=== PATIENT | male | born 1985 | race Caucasian/White ===

== ENCOUNTER 2020-12-20 13:50 | Inpatient (IN) | payer SELFPAY ==
[2020-12-20 13:52] VITALS: BP 145/90; PULSE 106; RESP 16; TEMP 37; O2SAT 100; BMI 28.7
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
[2020-12-20 14:45] LABS: Basophils # 0.1 10^3/uL (0.0-0.1); Basophils % 0.5 %; Eosinophils % 0.1 %; Hematocrit 50.1 % (42.0-52.0); Hemoglobin 17.2 g/dL (11.7-16.6); Lymphocytes # 1.9 10^3/uL (0.8-4.8); Lymphocytes % 6.1 %; Mean Corpuscular HGB Conc 34.3 g/dL (30.0-36.0); Mean Corpuscular Hemoglobin 29.1 pg (28.0-34.0); Mean Corpuscular Volume 84.6 fL (80-94); Mean Platelet Volume 9.5 fL (7.4-10.4); Monocytes # 1.9 10^3/uL (0.2-0.9); Monocytes % 6.3 %; Neutrophils # 26.16 10^3/uL (1.8-7.7); Neutrophils % 86.2 %; Nucleated Red Blood Cells % 0 %; Platelet Count 276 10^3/cmm (130-400); Red Blood Count 5.92 10^6/uL (4.1-5.3); Red Cell Distribution Width 12.4 % (12.1-15.1)
[2020-12-20 14:50] LABS: White Blood Count 30.3 10^3/uL (4.0-10.0)
--- NOTE | 2020-12-20 15:21 | XRR_ITS ---
PROCEDURE INFORMATION: Exam: XR Chest Exam date and time: 12/20/2020 3:22 PM Age: 35 years old Clinical indication: Cough and dyspnea; Additional info: Dyspnea/cough TECHNIQUE: Imaging protocol: XR of the chest Views: 1 view. COMPARISON: No relevant prior studies available. FINDINGS: Lungs: No consolidation. Pleural spaces: Unremarkable. No pleural effusion. No pneumothorax. Heart/Mediastinum: No cardiomegaly. Vasculature: The thoracic aorta is mildly atherosclerotic. Bones/joints: Degenerative spine changes are noted. XR/XR chest 1V portable [id number] IMPRESSION: No acute cardiopulmonary disease demonstrated.
[2020-12-20 15:24] LABS: Alanine Aminotransferase 22 U/L (0-41); Albumin Level 4.5 g/dL (3.5-5.2); Alkaline Phosphatase 117 IU/L (40-130); Anion Gap 14.4 (5-19); Aspartate Amino Transferase 17 U/L (0-40); Blood Urea Nitrogen 9 mg/dL (6-20); Calcium 8.9 mg/dL (8.5-10.5); Carbon Dioxide 25 mmol/L (22-29); Chloride 99 mmol/L (98-107); Creatine Phosphokinase 107 U/L (39-308); Globulin 3.5 g/dL (1.3-4.6); Glomerular Filtration Rate 96.6 mL/min (90-130); Glucose 117 mg/dL (65-115); Osmolality Calculated 280 mOsm/kg (285-295); Potassium 3.4 mmol/L (3.5-5.1); Sodium 135 mmol/L (136-145); Total Bilirubin 0.9 mg/dL (0.15-1.2)
[2020-12-20 15:27] LABS: Acetaminophen < 5.0 ug/mL (10-30); Alcohol Level < 10 mg/dL (0-10); Salicylate < 0.3 mg/dL (3-10)
[2020-12-20 15:29] LABS: Add Urine Microscopic? NO
--- NOTE | 2020-12-20 15:38 | CTR_ITS ---
PROCEDURE INFORMATION: Exam: CT Abdomen And Pelvis With Contrast Exam date and time: 12/20/2020 4:07 PM Age: 35 years old Clinical indication: Nausea; Additional info: Abd pain TECHNIQUE: Imaging protocol: Computed tomography of the abdomen and pelvis with contrast. Radiation optimization: All CT scans at this facility use at least one of these dose optimization techniques: automated exposure control; mA and/or kV adjustment per patient size (includes targeted exams where dose is matched to clinical indication); or iterative reconstruction. Contrast material: OMNI 300; Contrast volume: 95 ml; Contrast route: INTRAVENOUS (IV); COMPARISON: No relevant prior studies available. RADIATION DOSE METRICS: Total DLP (mGy-cm): 1765.75 FINDINGS: Lungs: Mild atelectasis versus fibrosis noted at the lung bases. Liver: The liver is unremarkable in appearance. Gallbladder and bile ducts: No calcified gallstones in the gallbladder. No gallbladder wall thickening. No pericholecystic fluid. No biliary dilatation. Pancreas: The pancreas is normal in appearance. No pancreatic duct dilatation. Spleen: The spleen is normal in size and appearance. Adrenal glands: The adrenal glands appear within normal limits. Kidneys and ureters: Nonobstructing 7 mm calculus lower pole left kidney. No renal cyst or mass on either side. No hydronephrosis. Ureters are unremarkable. Stomach and bowel: No acute gastric abnormality demonstrated. The small bowel is unremarkable as demonstrated. No acute abnormality/inflammatory change of the colon. Appendix: The appendix is normal in appearance. No evidence of appendicitis. Intraperitoneal space: No free air. No significant fluid collection. Vasculature: The aorta is unremarkable as demonstrated. Lymph nodes: No pathologically enlarged lymph nodes are demonstrated. Urinary bladder: The urinary bladder is unremarkable in appearance. Reproductive: Unremarkable as visualized. Bones/joints: No fracture or other acute osseous abnormality. Soft tissues: The soft tissues appear unremarkable. CT/CT abdomen pelvis w con* [id number] IMPRESSION: No acute abnormality demonstrated in the abdomen and pelvis. Radiation Dose CTDIVOL = (mGy): DLP = 1765.75 (mGy-cm)
--- NOTE | 2020-12-20 15:38 | CTR_ITS ---
PROCEDURE INFORMATION: Exam: CT Head Without Contrast Exam date and time: 12/20/2020 4:07 PM Age: 35 years old Clinical indication: Other: Hallucinations; Additional info: Leukocytosis TECHNIQUE: Imaging protocol: Computed tomography of the head without contrast. Radiation optimization: All CT scans at this facility use at least one of these dose optimization techniques: automated exposure control; mA and/or kV adjustment per patient size (includes targeted exams where dose is matched to clinical indication); or iterative reconstruction. COMPARISON: No relevant prior studies available. RADIATION DOSE METRICS: Total DLP (mGy-cm): 959.28 FINDINGS: Brain: Unremarkable. No hemorrhage. No significant white matter disease. No edema. Cerebral ventricles: No ventriculomegaly. Bones/joints: Unremarkable. No acute fracture. Paranasal sinuses: Visualized sinuses are unremarkable. No fluid levels. Mastoid air cells: Unremarkable as visualized. No mastoid effusion. Soft tissues: Unremarkable. CT/CT head wo con* [id number] IMPRESSION: No acute intracranial abnormality demonstrated. Radiation Dose CTDIVOL = (mGy): DLP = 959.28 (mGy-cm)
[2020-12-20 15:46] LABS: Bilirubin Urine Neg (Negative); Blood Urine Neg (Negative); Glucose Urine UA Norm (Normal); Ketones Urine Negative (Negative); Leukocyte Esterase Urine Negative (Negative); Nitrate Urine Negative (Negative); Protein Urine Neg (Negative); Urine Appearance Clear (CLEAR); Urine Color Yellow (Yellow); Urobilinogen Urine Norm (Negative); pH Urine 5 (5-7)
[2020-12-20 15:55] LABS: Amphetamines Screen Urine Negative (Negative); Barbiturates Screen Urine Negative (Negative); Benzodiazepines Screen Urine Negative (Negative); Cocaine Screen Urine Negative (Negative); Opiate Screen Urine Negative (Negative); PCP Screen Urine Negative (Negative); THC Screen Urine Positive (Negative)
[2020-12-20] MEDS: iohexol 300 mg/mL 100 mL Btl IV (16:39)
[2020-12-20 17:40] VITALS: BP 124/83; PULSE 74; O2SAT 95
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
[2020-12-20 18:01] VITALS: BP 127/85; PULSE 86; RESP 18; TEMP 36.7; O2SAT 95
[2020-12-20] MEDS: potassium chloride ER 20 mEq Tablet PO (18:10)
[2020-12-20 19:38] VITALS: BP 129/85; PULSE 77; RESP 17; TEMP 36.4; O2SAT 97
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
--- NOTE | 2020-12-20 22:42 | PC.NURSE ---
LEUKOCYTOSIS/DR MCKNIGHT NURSE CONTACTED HOSPITALIST, DR UGARTE, FOR INFORMATION ON WHAT TO WATCH FOR WITH THIS PATIENTS DIAGNOSED LEUKOCYTOSIS, WHAT MEDICAL EVALUATIONS TO COMPLETE, AND OBTAIN ANY SPECIAL ORDERS NEEDED TO ENSURE PATIENT SAFETY AND PROVIDE COMPREHENSIVE PATIENT CARE. PHYSICIAN STATED, NURSING STAFF NEEDS TO OBSERVE PATIENT FOR ANY S/S INFECTION, OBTAIN V/S Q4H AND REPORT IF BECOMES UNSTABLE. IF FEVER OF 100.4 DEVELOPS, DO THE BLOOD CULTURE LABS IMMEDIATELY, AND CONTACT HOSPITALIST.
[2020-12-20 22:59] LABS: Procalcitonin 0.05 ng/mL (0-0.5)
[2020-12-21 00:19] VITALS: BP 139/93; PULSE 71; RESP 18; TEMP 36.5; O2SAT 95
[2020-12-21 01:56] LABS: C Reactive Protein 7.9 mg/L (0.0-4.9)
[2020-12-21 04:21] VITALS: BP 114/75; PULSE 81; RESP 16; TEMP 36.2; O2SAT 96
[2020-12-21 04:53] LABS: Basophils # 0.1 10^3/uL (0.0-0.1); Basophils % 0.6 %; Eosinophils # 0.1 10^3/uL (0.0-0.8); Eosinophils % 0.4 %; Hemoglobin 16.3 g/dL (11.7-16.6); Lymphocytes # 3.3 10^3/uL (0.8-4.8); Lymphocytes % 28.5 %; Mean Corpuscular Hemoglobin 28.8 pg (28.0-34.0); Mean Corpuscular Volume 84.8 fL (80-94); Mean Platelet Volume 9.3 fL (7.4-10.4); Monocytes # 1.1 10^3/uL (0.2-0.9); Monocytes % 9.6 %; Neutrophils # 7.06 10^3/uL (1.8-7.7); Neutrophils % 60.7 %; Nucleated Red Blood Cells % 0 %; Platelet Count 290 10^3/cmm (130-400); Red Blood Count 5.66 10^6/uL (4.1-5.3); Red Cell Distribution Width 12.6 % (12.1-15.1); White Blood Count 11.6 10^3/uL (4.0-10.0)
[2020-12-21 05:16] LABS: Albumin Level 4.4 g/dL (3.5-5.2); Anion Gap 13.2 (5-19); Blood Urea Nitrogen 7 mg/dL (6-20); Calcium 9.2 mg/dL (8.5-10.5); Carbon Dioxide 27 mmol/L (22-29); Chloride 99 mmol/L (98-107); Glomerular Filtration Rate 110.7 mL/min (90-130); Glucose 95 mg/dL (65-115); Potassium 4.2 mmol/L (3.5-5.1); Sodium 135 mmol/L (136-145)
[2020-12-21 06:00] VITALS: BP 136/91; PULSE 69; RESP 18; TEMP 36.8; O2SAT 95
[2020-12-21 07:54] LABS: Magnesium 2.3 mg/dL (1.7-2.3)
[2020-12-21] MEDS: thiamine 100 mg Tablet PO (08:28)
--- NOTE | 2020-12-21 13:05 | P.HP_ITS ---
Providers/Chief Complaint Admitting Physician: Stephania Weems DO Chief Complaint: PSYCH EVAL HPI NPU History of Present Illness Ambrosio Mirza is a 35 year old male unclear, unknown past psychiatric history presented to the emergency department by police on 96-hour hold secondary to growing concerns about impulse control, irritability, anger, paranoid delusions and concerns about safety to self and others. At the time of his emergency department evaluation it was noted that he had stated that he was having hallucinations and was having paranoid delusions about his sisters . Patient was also noted to have a white count of 30,000 the time of initial evaluation hospitalist was consulted but at the time of reevaluation patient's white count had dropped down to 11,000 and patient denied any constitutional symptoms of fever or chills, no shortness of breath, no urinary complaints. CT of head, abdomen and pelvis were all unremarkable patient did not demonstrate any physical agitation throughout his ER stay. Patient calmly sitting in the day room talking to other patients, denies any moo d symptoms, denies any depressed symptoms, denies any irritability or anger, denies any suicidal or homicidal ideation. Patient denies any past episodes of sustained low mood state, decreased energy or interest in his usual activities or any sleep or appetite disruption secondary to mood symptoms. He denies any history of suicide attempts or self-harm behavior. Patient denies any past or recent episodes of enrike or hypomania. Patient currently denying any psychotic symptoms although he does report some paranoia which he relates to more now as suspicions about his sister's . Patient largely denied any psychiatric review of systems questions. COLLATERAL: Patient's mother, Anum, phone: [phone], reports that the patient has had intermittent episodes of anger, irritability, impulsive outbursts and states that he has had past instances of such behavior while using synthetic drugs and states that one of her daughters had also told her that he had recently been using wax around the time. Of these episodes of extreme rage in which the patient's family has felt threatened that he may possibly hurt himself or others. She denies that the patient has had any remarkable past psychiatric history but states that his sister has previously been hospitalized and treated for psychiatric reasons but denies any family history of suicide attempt or self-harm behavior. Meds NPU Home Medications Medication Instructions Recorded Confirmed Last Taken Type No Known Home Medications 12/20/20 12/20/20 Unknown History Allergies Allergy/AdvReac Type Severity Reaction Status Date / Time No Known Allergies Allergy Verified 12/20/20 15:16 [facility] NPU Other Psychiatric History: Other Psychiatric History: Denies any past psychiatric treatment Denies any history of psychiatric hospitalizations Denies any history of suicide attempts or self-harm behavior Mental Status Exam MSE Comments: Appears stated age, unkempt hair and page, wearing hospital attire, pleasant, interactive, somewhat unusual in his interactions often times getting up out of his chair to physically demonstrate elements of his story, good eye contact Psychomotor activity is neither increased nor decreased, no agitation Speech is normal rate and volume, spontaneous, clear articulation, not pressured I feel okay, full range of affect, not labile Alert and oriented to person, place, time, situation Memory and concentration appear to be fair to intact per interview Intellectual functioning appears to be average based on vocabulary, interview Thought process, somewhat circumstantial but easily redirected and mostly linear and goal-directed in his responses, no flight of ideas, no looseness of associations Thought content, paranoid delusions, overvalued ideas with paranoid themes, does not appear to be actively attending to any internal stimuli and does not appear to be internally preoccupied, no suicidal or homicidal ideation Insight and judgment appear to be fair Vitals/I&O/Wt Last Vital Signs Temp 98.2 F 12/21/20 06:00 Pulse 69 12/21/20 06:00 Resp 18 12/21/20 06:00 BP 136/91 12/21/20 06:00 Pulse Ox 95 12/21/20 06:00 Weight last 48 hrs Weight 90.718 kg Data NPU : 12/21/20 04:41 12/21/20 04:41 Micro: Microbiology 12/20/20 16:10 Blood Culture - Preliminary Blood SPECIMEN COLLECTED 12/20/20 16:15 Blood Culture - Preliminary Blood SPECIMEN COLLECTED Microbiology 12/20/20 16:10 Blood Blood Culture - Preliminary SPECIMEN COLLECTED 12/20/20 16:15 Blood Blood Culture - Preliminary SPECIMEN COLLECTED A&P Assessment and plan (1) Cannabis abuse: Status: Acute (2) Psychotic disorder: Status: Acute Qualifiers: Psychosis type: unspecified psychosis type Qualified Code(s): F29 - Unspecified psychosis not due to a substance or known physiological condition Additional A&P Information 35-year-old male with unknown past psychiatric history but known history of substance abuse reportedly using wax recently with escalating paranoia, combat reese behavior with concerns about harm to self and others on 96-hour hold. Patient would benefit from observation, treatment with low-dose antipsychotic as well as coordinating for post discharge substance counseling/treatment. INVOLUNTARY ADMIT to inpatient psychiatry START olanzapine 2.5 mg twice daily targeting psychotic symptoms Encourage patient to participate in unit activities to include group sessions, unit milieu Coordinate with social work therapist for post discharge substance counseling/treatment Involuntary Hold Information 96 Hour Hold: 96 Hour Involuntary Admission: Yes 96 Hour Hold Ending Date: 12/26/20 96 Hour Hold Ending Time: 14:30 Attestations NPU Medical Necessity Statement*: Require psychiatric hospitalization for medication stabilization, observation for any ongoing psychotic symptoms as well as coordinating for safe discharge. Anticipate hospital stay to exceed 2 midnights Time Spent in Patient Care: Greater than 35 minutes (>than 50% of time spent in counselling and/or direct pt care on unit) . Coding Level of Care Code Acute Cannon Fire Direction Specialist for Luciano Mccoy Diagnoses Cannabis abuse F12.10 Psychotic disorder F29 Psychosis type: unspecified psychosis type
[2020-12-21] MEDS: OLANZapine 5 mg TABLET 2.5 MG PO ×2 (13:20→20:34)
--- NOTE | 2020-12-21 13:52 | PM.PN ---
Subjective Subjective: Interval history: Patient reports feeling much better today. He slept well. Denies having any paranoid thoughts, hallucinations, anxiety or agitation. He also denies any fever or chills. No nausea or vomiting. No diarrhea. No chest pain, shortness of breath, cough, palpitations. Medications: Reviewed: Yes Medication Review Details: Generic Name Dose Route Start Last Admin Trade Name Nicolette PRN Reason Stop Dose Admin Olanzapine 2.5 mg 12/21/20 13:00 12/21/20 13:20 Olanzapine 5 Mg Tablet PO 2.5 mg BID MICHELLE Administration Thiamine Mononitra te 100 mg 12/21/20 09:00 12/21/20 08:28 Thiamine 100 Mg Tablet PO 100 mg DAILY MICHELLE Administration Vitals/I&O/Wt Last Vital Signs Temp 98.2 F 12/21/20 06:00 Pulse 69 12/21/20 06:00 Resp 18 12/21/20 06:00 BP 136/91 12/21/20 06:00 Pulse Ox 95 12/21/20 06:00 Weight last 48 hrs Weight 90.718 kg Physical Exam Narrative: EXAM NARRATIVE: The patient is awake and alert, oriented. Restless. Mood and affect appear to be appropriate. Follows all instructions. No evident psychosis. Speech is calm and organized. No dysarthria or aphasia. No physical distress. Skin is warm and dry. Moist mucous membranes PERRL. Extraocular muscles are intact. No scleral irritation or discoloration. Neck is supple, no stiffness. No JVD. Lungs are clear to auscultation bilaterally. No respiratory distress Heart S1, S2, regular. No murmur. Abdomen is soft, nontender, bowel sounds are present Extremities no edema cyanosis or calf tenderness bilaterally Neuro examination is nonfocal. Data : 12/21/20 04:41 12/21/20 04:41 Micro: Microbiology 12/20/20 16:10 Blood Culture - Preliminary Blood SPECIMEN COLLECTED 12/20/20 16:15 Blood Culture - Preliminary Blood SPECIMEN COLLECTED A&P Additional A&P Information Paranoid psychosis. Improving. Management per Dr. Weems. Dehydration probably due to vomiting and decreased oral intake of water due to intoxication with marijuana. Resolved. Hypokalemia. Replaced. Leukocytosis. Probably multifactorial. Could be reactive from stress and from dehydration and hemoconcentration. Resolving. No evidence of infection. DVT prophylaxis. Teds. Ample ambulation within the room and psychiatric unit. The plan of care was discussed with the patient. He verbalized understanding and agreement. Thank you very much for allowing me to participate in the treatment of this patient. Attestations Medical Necessity Statement*: Decision regarding length of stay per psychiatric service. Coding Level of Care Code Acute Film Touch Up Inspector for Luciano Mccoy
[2020-12-21 14:00] VITALS: BP 121/77; PULSE 74; RESP 18; TEMP 36.3; O2SAT 96
[2020-12-21 19:28] VITALS: BP 102/65; PULSE 67; RESP 16; TEMP 36.3; O2SAT 96
--- NOTE | 2020-12-21 21:52 | PC.NURSE ---
PM ASSESSMENT V/S ARE WNL, DENIES PAIN, DENIES SI/HI, DENIES AH/VH AT THIS TIME, PT SEEMS MORE WITHDRAWN THIS EVENING AND IS TEARFUL WHILE TALKING WITH NURSE, AND SAYS HE WANTS TO GO HOME TO HIS GIRLFRIEND. PT REPORTS A DECREASE IN ANXIETY BUT HIS AFFECT RELAYS A DIFFERENT STORY. PT IS IN HIS ROOM, DOES NOT COME OUT UNLESS HE NEEDS A DRINK. PT LABS ARE BETTER TODAY, WBC LAST NIGHT WAS 30.3, WBC THIS EVENING IS 11.6. NURSE IS PUSHING FLUIDS, REQUESTING PATIENT TO FILL HIS WATER CUP NO LESS THAN 3 TIMES EACH EVENING. V/S WILL BE COMPLETED Q4H, AND TEMPERATURE MONITORED FOR TEMP TO RISE ABOVE 100.4, NURSING STAFF WILL NOTIFY PHYSICIAN IF THERE ARE ANY NOTED S/S OF INFECTION NOTED. PT DOES HAVE MULTIPLE DENTAL CARRIES IN VARIOUS STAGE OF DECAY, GUMS ARE BROWN IN SOME AREAS AND THERE IS NOTED ERYTHEMA LOCALIZED ON A COUPLE OF THE CAVITIES. PT STATES, I KNOW I NEED TO SEE A DENTIST BUT I HAVE NOT BEEN ABLE TO AFFORD ONE. NURSING STAFF PROVIDED PT WITH NUMBER TO [facility] PT STATES, I STARTED NEW MEDICATION TODAY, IT MAKES ME TIRED.PT IS REFERRING TO ZYPREXA 2.5MG PO SCHEDULED BID. HE RECEIVED FIRST DOSE OF MEDICATION THIS MORNING, SAYS HE FELT TIRED, IN A FOG ALL DAY, BUT THE VOICES SEEM TO HAVE QUIETED DOWN SOME. WILL CONTINUE TO OBSERVE THIS PATIENT.
[2020-12-22 00:16] VITALS: BP 114/78; PULSE 88; RESP 17; TEMP 36.2; O2SAT 96
[2020-12-22 04:00] VITALS: BP 114/78; PULSE 88; RESP 17; TEMP 36.2; O2SAT 96
[2020-12-22 05:09] LABS: Basophils # 0.1 10^3/uL (0.0-0.1); Basophils % 0.8 %; Eosinophils # 0.2 10^3/uL (0.0-0.8); Hematocrit 50.5 % (42.0-52.0); Hemoglobin 16.7 g/dL (11.7-16.6); Lymphocytes # 4.6 10^3/uL (0.8-4.8); Mean Corpuscular HGB Conc 33.1 g/dL (30.0-36.0); Mean Corpuscular Hemoglobin 28.8 pg (28.0-34.0); Mean Corpuscular Volume 87.1 fL (80-94); Mean Platelet Volume 9.3 fL (7.4-10.4); Monocytes # 1.1 10^3/uL (0.2-0.9); Monocytes % 10.8 %; Neutrophils # 3.98 10^3/uL (1.8-7.7); Neutrophils % 40.3 %; Nucleated Red Blood Cells % 0 %; Platelet Count 257 10^3/cmm (130-400); White Blood Count 9.9 10^3/uL (4.0-10.0)
--- NOTE | 2020-12-22 05:17 | PC.NURSE ---
ENCOURAGE FLUIDS/MEALS PT WILL NOT ASK FOR SNACKS, IF YOU PRESENT THEM TO HIM, HE WILL EAT. HYDRATION IS IMPROVING LAB VALUES, ENCOURAGE PT TO DRINK OFTEN. PT ATE A SANDWICH, FRUIT CUP, AND DESERT, FINISHED OFF 4-16OZ GLASSES OF WATER, 1 CHOCOLATE MILK, 2 APPLE JUICES, AND 2 ORANGE JUICES LAST NIGHT. VERY WITHDRAWN, WILL NOT ASK FOR ANYTHING.
[2020-12-22 05:30] LABS: C Reactive Protein 7.2 mg/L (0.0-4.9); Magnesium 2.2 mg/dL (1.7-2.3)
[2020-12-22 05:32] LABS: Albumin Level 4.2 g/dL (3.5-5.2); Anion Gap 14.6 (5-19); Blood Urea Nitrogen 15 mg/dL (6-20); Calcium 8.6 mg/dL (8.5-10.5); Carbon Dioxide 26 mmol/L (22-29); Chloride 102 mmol/L (98-107); Glomerular Filtration Rate 85.5 mL/min (90-130); Glucose 91 mg/dL (65-115); Phosphorus 3.8 mg/dL (2.5-4.5); Potassium 4.6 mmol/L (3.5-5.1); Sodium 138 mmol/L (136-145)
[2020-12-22 06:15] VITALS: BP 113/79; PULSE 65; RESP 17; TEMP 36.9; O2SAT 97
[2020-12-22] MEDS: OLANZapine 5 mg TABLET 2.5 MG PO ×2 (08:12→20:21)
[2020-12-22] MEDS: thiamine 100 mg Tablet PO (08:12)
[2020-12-22 10:00] VITALS: TEMP 36.4
--- NOTE | 2020-12-22 12:13 | PM.PN ---
Subjective Subjective: Interval history: Patient's condition is discussed with the nursing staff. I also evaluated the patient through the information security director. He is doing well. No acute distress. No agitation or erratic behavior. No medical complaints or concerns. Medications: Reviewed: Yes Medication Review Details: Generic Name Dose Route Start Last Admin Trade Name Nicolette PRN Reason Stop Dose Admin Olanzapine 2.5 mg 12/21/20 21:00 12/22/20 08:12 Olanzapine 5 Mg Tablet PO 2.5 mg 0900,2100 MICHELLE Administration Thiamine Mononitra te 100 mg 12/21/20 09:00 12/22/20 08:12 Thiamine 100 Mg Tablet PO 100 mg DAILY MICHELLE Administration Vitals/I&O/Wt Last Vital Signs Temp 97.5 F L 12/22/20 10:00 Pulse 65 12/22/20 06:15 Resp 17 12/22/20 06:15 BP 113/79 12/22/20 06:15 Pulse Ox 97 12/22/20 06:15 Weight last 48 hrs Weight 90.718 kg Physical Exam Narrative: EXAM NARRATIVE: Awake alert oriented. No acute distress. Skin is dry. No respiratory distress. No peripheral cyanosis. Normal gait. No weakness is observed. Data : 12/22/20 04:43 12/22/20 04:43 Micro: Microbiology 12/20/20 16:15 Blood Culture - Preliminary Blood NEGATIVE TO DATE 12/20/20 16:10 Blood Culture - Preliminary Blood NEGATIVE TO DATE A&P Additional A&P Information Paranoid psychosis. Improving. Management per Dr. Weems. Dehydration probably due to vomiting and decreased oral intake of water due to intoxication with marijuana. Resolved. Hypokalemia. Replaced/resolved. Leukocytosis. Probably multifactorial. Could be reactive from stress and from dehydration and hemoconcentration. Resolved. No evidence of infection. DVT prophylaxis. Ample ambulation within the room and psychiatric unit. Discussed with the nursing staff. Thank you very much for allowing me to participate in the treatment of this patient. Attestations Medical Necessity Statement*: Medically cleared. Undergoing psychiatric evaluation and management. Coding Level of Care Code Acute Credit Administration Officer for Luciano Mccoy
[2020-12-22 14:00] VITALS: BP 106/53; PULSE 90; RESP 16; TEMP 36.7; O2SAT 97
--- NOTE | 2020-12-22 16:48 | P.PN_ITS ---
Subjective NPU Subjective: Interval history: Ambrosio presents today reporting a fairly convoluted story about circumstances that led to his admission very much downplaying any wrongdoing on his part. He plays mostly blaming the sister and as his concern for discharging sooner rather than later increased he began to speculate about the intention of his sister's ex- exactly. He acknowled ged symptoms concerning for psychosis without current treatment. We discussed arranging for treatment after discharge and making sure the medication is affecting change on his symptoms prior to discharge. He is on a 96-hour hold. Mental Status Exam MSE Comments: This is a overweight white male with hospital scrubs on with limited grooming/appearing unkempt with limited eye contact. No abnormal movem ents except for mild psychomotor retardation. Cooperative with exam in mild distress. Speech was normal rate decreased volume. Mood described as better than when he was admitted, affect somewhat guarded. Thought process organized. Thought content: Patient denied suicidal or homicidal ideation, there was occasional paranoia reported and some paranoia noted he denied auditory visual hallucinations initially then was somewhat unsure of the answer. Attention and concentration were intact and memory was somewhat reliable but none were formally tested. He is alert and oriented x3. Insight and judgment are impaired and impulse control is impaired., Vitals/I&O/Wt Last Vital Signs Temp 98.0 F 12/22/20 14:00 Pulse 90 12/22/20 14:00 Resp 16 12/22/20 14:00 BP 106/53 12/22/20 14:00 Pulse Ox 97 12/22/20 14:00 Data NPU : 12/22/20 04:43 12/22/20 04:43 Micro: Microbiology 12/20/20 16:15 Blood Culture - Preliminary Blood NEGATIVE TO DATE 12/20/20 16:10 Blood Culture - Preliminary Blood NEGATIVE TO DATE Microbiology 12/20/20 16:15 Blood Blood Culture - Preliminary NEGATIVE TO DATE 12/20/20 16:10 Blood Blood Culture - Preliminary NEGATIVE TO DATE A&P Assessment and plan (1) Psychotic disorder: Status: Acute Qualifiers: Psychosis type: unspecified psychosis type Qualified Code(s): F29 - Unspecified psychosis not due to a substance or known physiological condition (2) Cannabis abuse: Status: Acute Additional A&P Information This is a 35-year-old white male with psychotic symptoms and some cannabis use who presents on a 96-hour hold with recent medication started, hoping for discharge soon. 1. Continue current medication. 2. Continue every 15 minute checks for safety. 3. Encourage individual, group and milieu therapies. 4. Encourage sober living treatment after discharge at the highest level of care to which he is willing to commit. Involuntary Hold Information 96 Hour Hold: 96 Hour Involuntary Admission: Yes 96 Hour Hold Ending Date: 12/26/20 96 Hour Hold Ending Time: 14:30 Attestations NPU Medical Necessity Statement*: Inpatient hospitalization is medically necessary and the clinically appropriate intervention at this time. We will monitor medications and make changes as indicated. Likely length of stay 1 to 4 days. Coding Level of Care Code Acute Wallpaper Cleaner for Luciano Mccoy Diagnoses Psychotic disorder F29 Psychosis type: unspecified psychosis type Cannabis abuse F12.10
[2020-12-22 22:00] VITALS: BP 110/85; PULSE 76; RESP 17; TEMP 37.1; O2SAT 97
[2020-12-23 05:26] VITALS: BP 125/84; PULSE 84; RESP 16; TEMP 37.1; O2SAT 96
--- NOTE | 2020-12-23 05:33 | PC.NURSE ---
Behavior Pt wakes early, sitting in his room, says he is thinking about his relationship and what his next steps need to be. Pt stayed in his room all last night, he followed me to dayroom to talk. He became tearful, somewhat overwhelmed by the his living situation. He still feels targeted by his sisters boyfriend and says I have been trying to figure this tonio angle out, and followed by He is antifa, I think he is trying to replace me, and divide my family. I need to do something different in my likfe, I need to move to [place] and get out of this area. His plan to do this, I am going to get a job, save my money, and move us out of this place. He wants a change. He genuinely cares about the girlfriend in his life and there is not a time, nursing asks him how he is that he reply less than I miss my girlfriend and I want to go home. Pt is in the dayroom while it is quiet, watching television, and said he just retreats when other patients get loud.
[2020-12-23] MEDS: OLANZapine 5 mg TABLET 2.5 MG PO ×2 (07:50→20:32)
[2020-12-23] MEDS: thiamine 100 mg Tablet PO (07:50)
[2020-12-23 14:00] VITALS: BP 114/74; PULSE 73; RESP 18; TEMP 36.6; O2SAT 97
--- NOTE | 2020-12-23 16:38 | P.PN_ITS ---
Subjective NPU Subjective: Interval history: Ambrosio presents today reporting that he is cycling a little better. There is a clear occasion and a story he was reporting about his [id number]-nn-crl/sisters ex. he still seems to relate things in a magical way as if his sister has some hours to influence things in a way that is outside normal. But he was able to articulate a plan to avoid future issues. We discussed monitoring an additional day and possibly considering discharge tomorrow if he continues to have improvement and family is able to identify that this does represent moving forward as it appears. He reports that he is sleeping fine. Mental Status Exam MSE Comments: This is a overweight white male with hospital scrubs on with adequate grooming and eye contact. No abnormal movements except for resolving mild psychomotor retardation. Cooperative with exam in no acute distress. Spe ech was more normal rate and volume. Mood described okay, affect congruent and less guarded. Thought process organized. Thought content: Patient denied suicidal or homicidal ideation, there was occasional paranoia but none noted. He denied auditory visual hallucinations. Attention and concentration were intact and memory was somewhat reliable but none were formally tested. He is alert and oriented x3. Insight and judgment are improving and impulse control is improving. Vitals/I&O/Wt Last Vital Signs Temp 98.4 F 12/23/20 20:37 Pulse 63 12/23/20 20:37 Resp 18 12/23/20 20:37 BP 116/69 12/23/20 20:37 Pulse Ox 95 12/23/20 20:37 Data NPU : 12/22/20 04:43 12/22/20 04:43 A&P Additional A&P Information (1) Psychotic disorder: (2) Cannabis abuse: Additional A&P Information This is a 35-year-old white male with psychotic symptoms and some cannabis use who presents on a 96-hour hold with recent medication started, hoping for discharge soon. 1. Continue current medication. 2. Continue every 15 minute checks for safety. 3. Encourage individual, group and milieu therapies. 4. Encourage sober living treatment after discharge at the highest level of care to which he is willing to commit. Involuntary Hold Information 96 Hour Hold: 96 Hour Involuntary Admission: Yes 96 Hour Hold Ending Date: 12/26/20 96 Hour Hold Ending Time: 14:30 Attestations NPU Medical Necessity Statement*: Inpatient hospitalization is medically necessary and the clinically appropriate intervention at this time. We will monitor medications and make changes as indicated. Likely length of stay 1 to 3 days. Coding Level of Care Code Acute Spray Drier Operator for Luciano Mccoy
[2020-12-23] MEDS: trazodone 50 mg Tablet PO (20:32)
--- NOTE | 2020-12-23 20:32 | PC.NURSE ---
PRN TRAZODONE PATIENT REQUESTS TRAZODONE FOR SLEEP; WILL MONITOR FOR EFFECTIVENESS.
[2020-12-23 20:37] VITALS: BP 116/69; PULSE 63; RESP 18; TEMP 36.9; O2SAT 95
--- NOTE | 2020-12-23 21:30 | PC.NURSE ---
PRN FOLLOW UP PATIENT RESTING IN BED WITH EYES CLOSED.
[2020-12-24 06:00] VITALS: BP 147/92; PULSE 73; RESP 17; TEMP 37; O2SAT 98
[2020-12-24] MEDS: OLANZapine 5 mg TABLET 2.5 MG PO (08:10)
[2020-12-24] MEDS: thiamine 100 mg Tablet PO (08:11)
--- NOTE | 2020-12-24 10:31 | P.DS_ITS ---
Diagnoses at Discharge Discharge Diagnosis (1) Psychotic disorder: Status: Acute (2) Cannabis abuse: Status: Acute Reason for Visit Reason for Visit: PSYCH EVAL Brief History: History of Present Illness Ambrosio Mirza is a 35 year old male unclear, unknown past psychiatric history presented to the emergency department by police on 96-hour hold secondary to growing concerns about impulse control, irritability, anger, paranoid delusions and concerns about safety to self and others. At the time of his emergency department evaluation it was noted that he had stated that he was having hallucinations and was having paranoid delusions about his sisters . Patient was also noted to have a white count of 30,000 the time of initial evaluation hospitalist was consulted but at the time of reevaluation patient's white count had dropped down to 11,000 and patient denied any constitutional symptoms of fever or chills, no shortness of breath, no urinary complaints. CT of head, abdomen and pelvis were all unremarkable patient did not demonstrate any physical agitation throughout his ER stay. Patient calmly sitting in the day room talking to other patients, denies any mood symptoms, denies any depressed symptoms, denies any irritability or anger, denies any suicidal or homicidal ideation. Patient denies any past episodes of sustained low mood state, decreased energy or interest in his usual activities or any sleep or appetite disruption secondary to mood symptoms. He denies any history of suicide attempts or self-harm behavior. Patient denies any past or recent episodes of enrike or hypomania. Patient currently denying any psychotic symptoms although he does report some paranoia which he relates to more now as suspicions about his sister's . Patient largely denied any psychiatric review of systems questions. COLLATERAL: Patient's mother, Anum, phone: [phone], reports that the patient has had intermittent episodes of anger, irritability, impulsive outbursts and states that he has had past instances of such behavior while using synthetic drugs and states that one of her daughters had also told her that he had recently been using wax around the time. Of these episodes of extreme rage in which the patient's family has felt threatened that he may possibly hurt himself or others. She denies that the patient has had any remarkable past psychiatric history but states that his sister has previously been hospitalized and treated for psychiatric reasons but denies any family history of suicide attempt or self-harm behavior. Hospital Course Hospital Course Hermes presented to the emergency department reporting being here but seeming to have paranoia and possible hallucinations with collateral from family endorsing those issues being prominent in the complex that occurred in the home. He was admitted to the neuropsychiatric unit for definitive treatment of those issues. On the unit he slowly acclimated to the individual, group and milieu therapies. He was started on Zyprexa 2.5 mg p.o. twice daily with positive response. He started having more rational conversations and was able to work with his significant other to begin exploring alternative living arrangement if that was necessary. He was able to contract for safety prior to discharge. During the hospitalization, patient had routine laboratory studies which were within normal limits except for few outliers. Additionally there was a general medical evalu ation which was also within normal limits and revealed no new acute processes. Discharge Summary: At the time of discharge, lethality was denied and psychosis was resolving. Mood and anxiety were well managed. Patient endorsed a plan to avoid all drugs of abuse and follow-up with the aftercare recommendations of the treatment team. Patient was evaluated and deemed to be absent credible lethality, and had achieved the maximum benefit from an inpatient hospitalization, so was discharged. Involuntary Hold Information 96 Hour Hold: 96 Hour Involuntary Admission: Yes 96 Hour Hold Ending Date: 12/26/20 96 Hour Hold Ending Time: 14:30 Mental Status Exam MSE Comments: This is a overweight white male with hospital scrubs on with adequate grooming and eye contact. No abnormal movements. Cooperative with exam in no acute distress. Speech was more normal rate and volume. Mood described better, affect congruent and less guarded. Thought process organized. Thought content: Patient denied suicidal or homicidal ideation, there was occasional paranoia reported but none noted. He denied auditory or visual hallucinations. Attention and concentration were intact and memory was improving but none were formally tested. He is alert and oriented x3. Insight and judgment are improving and impulse control is improving. Discharge Data Data Completed and Pending: Completed Studies During Hospitalization Category Date Time Status CT abdomen pelvis w con* [id number] Stat Cat Scan 12/20/20 15:[address] head wo con* [id number] Stat Cat Scan 12/20/20 15:38 Completed XR chest 1V amanda ble [id number] Stat Exams 12/20/20 15:21 Completed Pending at discharge Category Date Time Status Blood Culture Sta t Lab 12/20/20 16:10 Results Vitals: Last Vital Signs Temp 98.6 F 12/24/20 06:00 Pulse 73 12/24/20 06:00 Resp 17 12/24/20 06:00 BP 147/92 12/24/20 06:00 Pulse Ox 98 12/24/20 06:00 Discharge Plan Discharge Patient Disposition: Home Condition: Stable Prescriptions: New trazodone 50 mg Tablet 50 mg PO BEDTIME PRN (Reason: Sleep) 30 Days Qty: 30 RF: 1 olanzapine 5 mg Tablet 2.5 mg PO 0900,2100 30 Days Qty: 30 RF: 1 Vitamin B-1 (mononitrate) 100 mg Tablet 100 mg PO DAILY 30 Days Qty: 30 RF: 1 Discharge Orders: Discharge Order (Routine); Ordered 12/24/20 Ordered By: Jackson Guerra Referrals: [facility] [Outside] (Resource for outpatient mental health treatment. Can provide services such as therapy, medication management, and case management. Call for information if interested.) Discharge Diet: Regular Discharge Activity: Resume usual activity Discharge Attestations NPU Time Spent in Discharge Care*: less than 30 min Specific Discharge Activities: Specific discharge activities: educating patient, discussing with case operator/social workers/dc planners, documenting/other paperwork and evaluating patient/reviewing data Coding Level of Care Code Acute Sports Physical Therapist for Luciano Fwd Diagnoses Psychotic disorder F29 Cannabis abuse F12.10
[2020-12-24 11:09] VITALS: BP 147/92; PULSE 73; RESP 17; TEMP 37; O2SAT 98
== END 2020-12-24 14:03 | disposition home or self-care (01) | DRG 885 ==
LOC: ER 15:23 → NP 17:35
PROVIDERS: Internal Medicine; Admitting Provider Psychiatry & Neurology Psychiatry; Emergency Provider Family Medicine; Visit Provider Psychiatry & Neurology Psychiatry
DX: F23 Brief psychotic disorder (principal); F22 Delusional disorders; F12.129 Cannabis abuse with intoxication, unspecified; R11.0 Nausea; E86.0 Dehydration; E87.6 Hypokalemia; D72.829 Elevated white blood cell count, unspecified
CPT/HCPCS: 36415; 70450; 71045; 74177; 80053; 80069; 80306; 80307; 81003; 82550; 83735; 84145; 85025; 86140; 87040; 99285; Q9967

== ENCOUNTER 2023-09-02 20:22 | Emergency (ER) | payer MEDICAID, SELFPAY ==
[2023-09-02 20:25] VITALS: BP 123/86; PULSE 96; RESP 16; TEMP 36.6; O2SAT 97; BMI 28.0
--- NOTE | 2023-09-02 20:41 | P.NPUHP_ITS ---
Providers/Chief Complaint Chief Complaint: psychiatric eval HPI NPU History of Present Illness Ambrosio Mirza is a 38 year old male who presented to the emergency department with the following report: Chief Complaint: Psychiatric Symptoms Stated Complaint: psychiatric eval Time Seen by Provider: 09/02/23 20:23 Source: patient and police Mode of arrival: other Limitations: no limitations History of Present Illness: 38-year-old male who is currently incarcerated at [facility] has been there for 5 months. Speaking to the retirement guards with thinking he was sent here for a psych eval that was court ordered. They are concerned he may be bipolar as he is made statements that he believes he is smarter than everyone else and that he does not believe in God. Patient denies SI or HI patient here has been calm and cooperative. Denies any worsening improving factors. Associated symptoms: Deny delusions or depression Patient presented to the emergency department known from a past admission with some confusion about exactly what was needed. He told a fairly convoluted story about doing fine after discharge but not continuing his medication. He reports that his mother called the police on him secondary to some conflict they were having regarding his use of cannabis and his desire to grow cannabis on their property legally with the new change in laws. He reports that turned into some conflict that led to the police being called and then going in his room and finding some knife or some other object. He reports that they arrested him and then charged home with some kind of weapons charge of some sort. He reports that happened back in March and that he has been incarcerated ever since. He reports that he could have gotten out in April on a name fine but is sister had concerns about signing him out under her name. Fast forward to now he reports that he had some kind of hearing today where today talked about him getting guardianship and told him he was coming here on a 96-hour hold for 2 days or maybe a couple weeks for guardianship to manifest. He reports that he was told that if he did not get admitted that he would be in the retirement at least till October. He said they plan on dropping the charges but the story was very confusing. We reviewed his previous hospitalization in 2020 and some of the concerns at that time. We discussed our continued belief at that time that his psychotic disorder could be representation of an organic psychotic disorder but could also be a consequence of cannabis use in some situations. 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 He reports that they thought he was using too much money at the dispensary and his mother was afraid that if he legally got the license to grow cannabis on their property that the difference between the state and federal laws could put their property at risk for being confiscated for marijuana growing. He denies any history of aggression and denies that there was any kind of weapon but reports he is trying to do what he has been asked to do by the court but feels if he is not admitted to the cost of another 3 months of his life we discussed the difficulty in knowing what is delusional and what is not in situations where the delusions are not of a bizarre nature so was unclear about the concerns his mom brought to the court this supposedly the basis of his 96-hour hold. It was also unclear whether this was a furlough or whether he was going to be actually released. We discussed that the emergency room doctor would work with the court and the retirement and the officer to determine the situation to make a final decision on admission. An excerpt of his 2020 admission is included below for historical context and the fact that he denies significant changes since then. Per his 12/24/2020 [facility] inpatient psychiatric discharge summary: Discharge Diagnosis (1) Psychotic disorder: Status: Acute (2) Cannabis abuse: Status: Acute Reason for Visit Reason for Visit: PSYCH EVAL Brief History: History of Present Illness Ambrosio Mirza is a 35 year old male unclear, unknown past psychiatric history presented to the emergency department by police on 96-hour hold secondary to growing concerns about impulse control, irritability, anger, paranoid delusions and concerns about safety to self and others. At the time of his emergency department evaluation it was noted that he had stated that he was having hallucinations and was having paranoid delusions about his sisters . Patient was also noted to have a white count of 30,000 the time of initial evaluation hospitalist was consulted but at the time of reevaluation patient's white count had dropped down to 11,000 and patient denied any constitutional sy mptoms of fever or chills, no shortness of breath, no urinary complaints. CT of head, abdomen and pelvis were all unremarkable patient did not demonstrate any physical agitation throughout his ER stay. Patient calmly sitting in the day room talking to other patients, denies any mood symptoms, denies any depressed symptoms, denies any irritability or anger, denies any suicidal or homicidal ideation. Patient denies any past episodes of sustained low mood state, decreased energy or interest in his usual activities or any sleep or appetite disruption secondary to mood symptoms. He denies any h istory of suicide attempts or self-harm behavior. Patient denies any past or recent episodes of enrike or hypomania. Patient currently denying any psychotic symptoms although he does report some paranoia which he relates to more now as suspicions about his sister's . Patient largely denied any psychiatric review of systems questions. COLLATERAL: Patient's mother, Anum, phone: [phone], reports that the patient has had intermittent episodes of anger, irritability, impulsive outbursts and states that he has had past instances of such behavior while using synthetic drugs and states that one of her daughters had also told her that he had recently been using wax around the time. Of these episodes of extreme rage in which the patient's family has felt threatened that he may possibly hurt himself or others. She denies that the patient has had any remarkable past psychiatric history but states that his sister has previously been hospitalized and treated for psychiatric reasons but denies any family history of suicide attempt or self-harm behavior. Hospital Course Hermes presented to the emergency department reporting being here but seeming to have paranoia and possible hallucinations with collateral from family endorsing those issues being prominent in the complex that occurred in the home. He was admitted to the neuropsychiatric unit for definitive treatment of those issues. On the unit he slowly acclimated to the individual, group and milieu therapies. He was started on Zyprexa 2.5 mg p.o. twice daily with positive response. He started having more rational conversations and was able to work with his significant other to begin exploring alternative living arrangement if that was necessary. He was able to contract for safety prior to discharge. During the hospitalization, patient had routine laboratory studies which were within normal limits except for few outliers. Additionally there was a general medical evaluation which was also within normal limits and revealed no new acute processes. Discharge Summary: At the time of discharge, lethality was denied and psychosis was resolving. Mood and anxiety were well managed. Patient endorsed a plan to avoid all drugs of abuse and follow-up with the aftercare recommendations of the treatment team. Patient was evaluated and deemed to be absent credible lethality, and had achieved the maximum benefit from an inpatient hospitalization, so was discharged. Meds NPU Home Medications Medication Instructions Recorded Confirmed Last Taken Type olanzapine 5 mg tablet 2.5 mg (1/2 x 5 mg) PO 0900,2100 12/24/20 Unknown Rx 30 days #30 tabs thiamine mononitrate (vit B1) 100 100 mg PO DAILY 30 days #30 tabs 12/24/20 Unknown Rx mg tablet (Vitamin B-1 (mononitrate)) trazodone 50 mg tablet 50 mg PO BEDTIME PRN Sleep 30 days 12/24/20 Unknown Rx #30 tabs Allergies Allergy/AdvReac Type Severity Reaction Status Date / Time No Known Allergies Allergy Verified 09/02/23 21:28 Mental Status Exam MSE Comments: This is a overweight white male with hospital scrubs on with limited grooming/appearing unkempt with limited eye contact. No abnormal movements except for mild psychomotor retardation. Cooperative with exam in mild distress. Speech was decreased rate and volume. Mood described confused about all this, affect somewhat guarded. Thought process linear. Thought content: Patient denied suicidal or homicidal ideation, there was occasional paranoia reported and some paranoia noted he denied auditory visual hallucinations. Attention and concentration were intact and memory was somewhat reliable but none were formally tested. He is alert and oriented x3. Insight and judgment are impaired and impulse control is impaired., Vitals/I&O/Wt Last Vital Signs Temp 97.9 F 09/02/23 20:25 Pulse 96 09/02/23 20:25 Resp 16 09/02/23 20:25 BP 123/86 09/02/23 20:25 Pulse Ox 97 09/02/23 20:25 O2 Del Method Room Air 09/02/23 20:25 Weight last 48 hrs Weight 86.183 kg A&P Assessment and plan (1) Hallucinations: (2) Cannabis abuse: (3) Paranoia: (4) Psychotic disorder: Plan This is a 38-year-old white male with psychotic symptoms and history of significant cannabis use who presents on a 96-hour hold released from retirement with very unclear sense of what the purpose of the evaluation would be and how that would inform the courts decision to release him. 1. Explore the possibility of restarting medications. 2. Get collateral information from the court and/or family for better understanding of the purpose of admission. 3. Encourage sober living treatment at the highest level of care to which he is willing to commit. Involuntary Hold Information 96 Hour Hold: 96 Hour Involuntary Admission: Yes 96 Hour Hold Ending Date: 12/26/20 96 Hour Hold Ending Time: 14:30 Attestations NPU Medical Necessity Statement*: N/A. Please see primary team note for medical necessity Coding Level of Care Code Acute Code for [facility] Fwd Diagnoses Hallucinations R44.3 Cannabis abuse F12.10 Paranoia F22 Psychosis, unspecified psychosis type F29
--- NOTE | 2023-09-02 20:46 | PC.NURSE ---
pt currently speaking with Dr. Guerra at this time 2046
[2023-09-02 20:47] VITALS: PULSE 96; RESP 16
--- NOTE | 2023-09-02 20:56 | ED.C_ITS ---
HPI - Psych General: Chief Complaint: Psychiatric Symptoms Stated Complaint: psychiatric eval Time Seen by Provider: 09/02/23 20:23 Source: patient and police Mode of arrival: other Limitations: no limitations History of Present Illness: 38-year-old male who is currently incarc erated at [facility] has been there for 5 months. Speaking to the fdc guards with thinking he was sent here for a psych eval that was court ordered. They are concerned he may be bipolar as he is made statements that he believes he is smarter than everyone else and that he does not believe in God. Patient denies SI or HI patient here has been calm and cooperative. Denies any worsening improving factors. Associated symptoms: Deny delusions or depression Review of Systems Const: Denies: fever(s), chills, body aches or change in appetite Eyes: Denies: blurry vision or eye discomfort ENMT: Denies: throat pain or dental pain Card: Denies: chest pain Resp: Denies: dyspnea GI: Denies: abdominal pain, nausea, vomiting or diarrhea Musc: Denies: neck pain or back pain Skin/Breast: Denies: rash Neuro: Denies: headache(s) Psych: Denies: depression Physical Exam Const: COMMON NORMALS: patient oriented x3 HENMT: COMMON NORMALS: atraumatic HEAD & SCALP: atraumatic Eye: COMMON NORMALS: conjunctivae normal CONJUNCTIVA: Yes conjunctivae normal Chest: COMMONS NORMALS: normal inspection of the chest Resp: COMMON NORMALS: normal respiratory effort Cardio: COMMON NORMALS: regular rate RATE: regular rate GI: INSPECTION: Yes normal to inspection Extremity: COMMON NORMALS: normal to inspection Neuro: COMMON NORMALS: patient oriented x3 Psych: COMMON NORMALS: mental status grossly normal, Normal thought process present and speech normal APPEARANCE: Yes grossly normal ATTITUDE: Yes calm SPEECH: Yes normal speech THOUGHT PROCESS: Normal thought process present THOUGHT CONTENT: No Suicidality present and No delusions Skin: COMMON NORMALS: no rashes or lesions noted GENERAL SKIN EXAM: no rashes or lesions noted Course Vital Signs: Vital signs: Vital Signs Temperature 97.9 F 09/02/23 20:25 Pulse Rate 96 09/02/23 20:47 Respiratory Rate 16 09/02/23 20:47 Blood Pressure 123/86 09/02/23 20:25 Pulse Oximetry 97 09/02/23 20:25 Oxygen Delivery Me thod Room Air 09/02/23 20:25 MDM - Psych Medical Decision Making Patient [facility] here from prison for psychiatric eval patient was seen by Dr. Guerra who agrees admit patient does not require inpatient treatment patient is discharged back into custody to go to prison. No radiology studies performed this visit Discharge Plan Discharge Patient Disposition: Home Clinical Impression: Encounter for psychiatric assessment Condition: Stable Prescriptions: No Action trazodone 50 mg Tablet 50 mg PO BEDTIME PRN (Reason: Sleep) 30 Days Qty: 30 1RF olanzapine 5 mg Tablet 2.5 mg PO 0900,2100 30 Days Qty: 30 1RF Vitamin B-1 (mononitrate) 100 mg Tablet 100 mg PO DAILY 30 Days Qty: 30 1RF Discharge Orders: Discharge ED (Routine); Ordered 09/02/23 Ordered By: James Rodriguez Discharge Diet: Advance as tolerated Discharge Activity: Resume usual activity Activity Restrictions/Additional Instructions: Patient seen by psychiatrist here over telemetry did not recommend inpatient treatment patient stable for discharge return if any worsening symptoms. Coding Level of Care Code ED Mobile Phlebotomist for Luciano Mccoy
== END 2023-09-02 21:02 | disposition home or self-care (01) ==
PROVIDERS: Emergency Provider Emergency Medicine
DX: Z04.6 Encounter for general psychiatric examination, requested by authority (principal)
CPT/HCPCS: 99283

== ENCOUNTER 2023-09-02 21:20 | Inpatient (IN) | payer MEDICAID, SELFPAY ==
[2023-09-02 21:25] VITALS: BP 123/86; PULSE 87; RESP 16; TEMP 36.6; O2SAT 97; BMI 28.0
--- NOTE | 2023-09-02 21:38 | ED.C_ITS ---
HPI - Psych 2 General: Chief Complaint: Psychiatric Symptoms Stated Complaint: 96 hr hold Time Seen by Provider: 09/02/23 21:21 Source: patient and police Mode of arrival: other Limitations: no limitations History of Present Illness: 38-year-old male who had just seen and p johanna was evaluated by Dr. Guerra from skilled nursing for possible psych admission. The gel was brought him back on a court ordered 96-hour hold and states that they are going to release him from custody at this time now. Patient denies SI or HI he states that he is willing to be admitted to be evaluated as was court ordered no other complaints at this time Associated symptoms: Reports auditory hallucinations Review of Systems 2 Const: Denies: fever(s), chills, body aches or change in appetite Eyes: Denies: blurry vision or eye discomfort ENMT: Denies: throat pain or dental pain Card: Denies: chest pain Resp: Denies: dyspnea GI: Denies: abdominal pain, nausea, vomiting or diarrhea Musc: Denies: neck pain or back pain Skin/Breast: Denies: rash Neuro: Denies: headache(s) Psych: Reports: auditory hallucinations Physical Exam 2 Const: COMMON NORMALS: patient oriented x3 HENMT: COMMON NORMALS: normocephalic HEAD & SCALP: normocephalic Eye: COMMON NORMALS: conjunctivae normal CONJUNCTIVA: Yes conjunctivae normal Chest: COMMONS NORMALS: normal inspection of the chest Resp: COMMON NORMALS: normal respiratory effort GI: INSPECTION: Yes normal to inspection Extremity: COMMON NORMALS: normal to inspection Neuro: COMMON NORMALS: patient oriented x3 Psych: COMMON NORMALS: mental status grossly normal Course 2 Vital Signs: Vital signs: Vital Signs Temperature 97.9 F 09/02/23 21:25 Pulse Rate 87 09/02/23 21:25 Respiratory Rate 16 09/02/23 21:25 Blood Pressure 123/86 09/02/23 21:25 Pulse Oximetry 97 09/02/23 21:25 Oxygen Delivery Me thod Room Air 09/02/23 21:25 MDM - Psych Medical Decision Making Patient presents here some hallucinations he is under court her 96-hour hold he is well-appearing here and cooperative I spoke to the psychiatrist patient is being released by the police and will admit Medical Records I reviewed the patient's medical records. Lab Data I reviewed the patient's lab results. 09/02/23 21:45 09/02/23 21:45 Laboratory Results WBC 9.92 10^3/uL (3.29-11.43) 09/02/23 21:45 RBC 5.32 10^6/uL (3.85-5.65) 09/02/23 21:45 Hgb 15.80 g/dL (11.27-16.99) 09/02/23 21:45 Hct 47.3 % (37-53) 09/02/23 21:45 MCV 88.9 fl (82-101) 09/02/23 21:45 MCH 29.7 pg (27-33) 09/02/23 21:45 MCHC 33.4 g/dL (30-55) 09/02/23 21:45 RDW 11.9 % (12.1-15.1) L 09/02/23 21:45 Plt Count 269 10^3/cmm (157-399) 09/02/23 21:45 MPV 9.5 fL (7.4-10.4) 09/02/23 21:45 Neut % (Auto) 49.6 % 09/02/23 21:45 Lymph % (Auto) 34.6 % 09/02/23 21:45 Woods % (Auto) 12.5 % 09/02/23 21:45 Eos % (Auto) 1.8 % 09/02/23 21:45 Baso % (Auto) 1.2 % 09/02/23 21:45 Neut # (Auto) 4.92 10^3/uL (1.8-7.7) 09/02/23 21:45 Lymph # (Auto) 3.4 10^3/uL (0.8-4.8) 09/02/23 21:45 Woods # (Auto) 1.2 10^3/uL (0.2-0.9) H 09/02/23 21:45 Eos # (Auto) 0.2 10^3/uL (0.0-0.8) 09/02/23 21:45 Baso # (Auto) 0.1 10^3/uL (0.0-0.1) 09/02/23 21:45 Nucleated RBC % (auto) 0 % 09/02/23 21:45 Nucleated RBCs # 0.0 /100WBC 09/02/23 21:45 No radiology studies performed this visit Discharge Plan Discharge Patient Disposition: Admitted As Inpatient Clinical Impression: Hallucinations Condition: Stable Prescriptions: No Action trazodone 50 mg Tablet 50 mg PO BEDTIME PRN (Reason: Sleep) 30 Days Qty: 30 1RF olanzapine 5 mg Tablet 2.5 mg PO 0900,2100 30 Days Qty: 30 1RF Vitamin B-1 (mononitrate) 100 mg Tablet 100 mg PO DAILY 30 Days Qty: 30 1RF Coding Level of Care Code ED 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
[2023-09-02 21:52] LABS: Basophils # 0.1 10^3/uL (0.0-0.1); Basophils % 1.2 %; Eosinophils # 0.2 10^3/uL (0.0-0.8); Eosinophils % 1.8 %; Hematocrit 47.3 % (37-53); Lymphocytes # 3.4 10^3/uL (0.8-4.8); Lymphocytes % 34.6 %; Mean Corpuscular HGB Conc 33.4 g/dL (30-55); Mean Corpuscular Hemoglobin 29.7 pg (27-33); Mean Corpuscular Volume 88.9 fl (82-101); Mean Platelet Volume 9.5 fL (7.4-10.4); Monocytes # 1.2 10^3/uL (0.2-0.9); Monocytes % 12.5 %; Neutrophils # 4.92 10^3/uL (1.8-7.7); Neutrophils % 49.6 %; Nucleated Red Blood Cells % 0 %; Platelet Count 269 10^3/cmm (157-399); Red Blood Count 5.32 10^6/uL (3.85-5.65); Red Cell Distribution Width 11.9 % (12.1-15.1); White Blood Count 9.92 10^3/uL (3.29-11.43)
[2023-09-02 22:02] VITALS: RESP 20
[2023-09-02 22:08] LABS: Alanine Aminotransferase 22 U/L (0-41); Albumin Level 4.1 g/dL (3.5-5.2); Alkaline Phosphatase 118 U/L (40-130); Blood Urea Nitrogen 8 mg/dL (6-20); Calcium 9.1 mg/dL (8.5-10.5); Carbon Dioxide 24 mmol/L (22-29); Chloride 101 mmol/L (98-107); Globulin 3.3 g/dL (1.3-4.6); Glomerular Filtration Rate 108.8 mL/min (90-130); Glucose 95 mg/dL (65-115); Osmolality Calculated 278 mOsm/kg (285-295); Sodium 135 mmol/L (136-145); Total Bilirubin 0.7 mg/dL (0.15-1.2); Total Protein 7.4 g/dL (6.6-8.7)
[2023-09-02 22:19] LABS: Acetaminophen < 5.0 ug/mL (10-30); Alcohol Level < 10 mg/dL (0-10); Salicylate < 0.3 mg/dL (3-10)
[2023-09-02 22:20] LABS: Anion Gap 14.4 (5-19); Aspartate Amino Transferase 19 U/L (0-40); Potassium 4.4 mmol/L (3.5-5.1)
[2023-09-02 22:22] VITALS: BP 123/86; PULSE 85; RESP 18; TEMP 36.6; O2SAT 98
[2023-09-02 22:25] VITALS: RESP 20
[2023-09-03 04:30] LABS: Amphetamines Screen Urine Negative (Negative); Barbiturates Screen Urine Negative (Negative); Benzodiazepines Screen Urine Negative (Negative); Cocaine Screen Urine Negative (Negative); Opiate Screen Urine Negative (Negative); PCP Screen Urine Negative (Negative); THC Screen Urine Positive (Negative)
[2023-09-03 06:00] VITALS: BP 138/88; PULSE 92; RESP 16; O2SAT 98
--- NOTE | 2023-09-03 07:36 | P.NPUHP_ITS ---
Providers/Chief Complaint 2 Admitting Physician: Jackson Guerra MD Chief Complaint: 96 hr hold HPI NPU History of Present Illness Ambrosio Mirza is a 38 year old male who presented to the emergency department yesterday with initial plan for admission. He was brought by the police with desire for admission but ultimately left the emergency department for an hour or so and returned with the exact same complaint with the exact same situation but with further clarity from the [facility]. He was ultimately admitted and there were no changes whatsoever. Please refer to the 09/02/2023 H&P in the emergency department for the evaluation and plan for admission. Meds NPU Home Medications Medication Instructions Recorded Confirmed Last Taken Type No Known Home Medications 09/05/23 09/05/23 Unknown History paliperidone palmitate 156 mg/mL 156 mg IM Q30D #1 mL 09/12/23 Unknown Rx intramuscular syringe (Invega Sustenna) paliperidone palmitate 234 mg/1.5 234 mg (1.5 mL) IM Q30D #1.5 mL 09/12/23 Unknown Rx mL intramuscular syringe (Invega Sustenna) Allergies Allergy/AdvReac Type Severity Reaction Status Date / Time No Known Allergies Allergy Verified 09/05/23 23:59 Mental Status Exam 2 MSE Comments: This is a overweight white male with hospital scrubs on with limited grooming/appearing unkempt with limited eye contact. No abnormal movements except for mild psychomotor retardation. Cooperative with exam in mild distress. Speech was decreased rate and volume. Mood described confused about all this, affect somewhat guarded. Thought process linear. Thought content: Patient denied suicidal or homicidal ideation, there was occasional paranoia reported and some paranoia noted he denied auditory visual hallucinations. Attention and concentration were intact and memory was somewhat reliable but none were formally tested. He is alert and oriented x3. Insight and judgment are impaired and impulse control is impaired., Vitals/I&O/Wt Last Vital Signs Temp 97.9 F 09/12/23 14:00 Pulse 103 H 09/12/23 14:00 Resp 15 09/12/23 14:00 BP 116/70 09/12/23 14:00 Pulse Ox 95 09/12/23 14:00 O2 Del Method Room Air 09/12/23 06:00 Data NPU 09/02/23 21:45 09/02/23 21:45 A&P Assessment and plan (1) Hallucinations: (2) Cannabis abuse: (3) Paranoia: (4) Psychotic disorder: Plan This is a 38-year-old white male with psychotic symptoms and history of significant cannabis use who presents on a 96-hour hold released from [facility] with very unclear sense of what the purpose of the evaluation would be and how that would inform the courts decision to release him. 1. Explore the possibility of restarting medications. 2. Get collateral information from the court and/or family for better understanding of the purpose of admission. Speak with guardian as soon as possible if guardian exists. 3. Encourage sober living treatment after discharge at the highest level of care to which he is willing to commit. 4. Continue every 15 minute checks for safety. 5. Encourage individual, group and milieu therapy. Involuntary Hold Information 2 96 Hour Hold: 96 Hour Involuntary Admission: Yes 96 Hour Hold Ending Date: 09/06/23 96 Hour Hold Ending Time: 21:51 Attestations NPU 2 Medical Necessity Statement*: Inpatient hospitalization is medically necessary and the clinically appropriate intervention at this time. We will monitor/initiate medications and make changes as indicated. He will be in the hospital for over 2 midnights. Likely length of stay 2 to 4 days. Coding Level of Care Code Acute Code for [facility] Diagnoses Hallucinations R44.3 Cannabis abuse F12.10 Paranoia F22 Psychosis, unspecified psychosis type F29
--- NOTE | 2023-09-03 13:53 | P.NPUPN_ITS ---
Subjective NPU 2 Subjective: This is a 38-year-old white male who presented to the emergency department with the following report: Chief Complaint: Psychiatric Symptoms Stated Complaint: 96 hr hold Time Seen by Provider: 09/02/23 21:21 Source: patient and police Mode of arrival: other Limitations: no limitations History of Present Illness: 38-year-old male who had just seen and p atient was evaluated by Dr. Guerra from skilled nursing for possible psych admission. The gel was brought him back on a court ordered 96-hour hold and states that they are going to release him from custody at this time now. Patient denies SI or HI he states that he is willing to be admitted to be evaluated as was court ordered no other complaints at this time Associated symptoms: Reports auditory hallucinations. He was admitted to the neuropsychiatric unit for definitive treatment of those issues. Patient was seen for a psych evaluation in the emergency department and it was unclear whether he was going to be admitted or not due to some confusion in the communication from the skilled nursing as well as the court house. And now even appears that the patient had a emergency guardianship hearing and is now under guardianship we discussed having to figure that out and talk to the guardian, and the court house about the purpose of his evaluation and why emergency guardianship was needed as he was only able to share something about him spending too much money at the dispensary for marijuana. We agreed we would attempt to get this information speak to guardian and family and figure out what is next. We discussed there is no indication this needs to be a lengthy stay once we determine what the concerns are given his being a fairly poor historian for fact finding. Mental Status Exam 2 MSE Comments: This is a overweight white male with hospital scrubs on with limited grooming/appearing unkempt with limited eye contact. No abnormal movements except for mild psychomotor retardation. Cooperative with exam in mild distress. Speech was decreased rate and volume. Mood described confused about all this, affect somewhat guarded. Thought process linear. Thought content: Patient denied suicidal or homicidal ideation, there was occasional paranoia reported and some paranoia noted he denied auditory visual hallucinations. Attention and concentration were intact and memory was somewhat reliable but none were formally tested. He is alert and oriented x3. Insight and judgment are impaired and impulse control is impaired., Vitals/I&O/Wt Last Vital Signs Temp 97.8 F 09/02/23 22:22 Pulse 92 09/03/23 06:00 Resp 16 09/03/23 06:00 BP 138/88 09/03/23 06:00 Pulse Ox 98 09/03/23 06:00 O2 Del Method Room Air 09/03/23 06:00 Weight last 48 hrs Weight 86.183 kg Data NPU 09/02/23 21:45 09/02/23 21:45 A&P Assessment and plan (1) Hallucinations: (2) Cannabis abuse: (3) Paranoia: (4) Psychotic disorder: Plan This is a 38-year-old white male with psychotic symptoms and history of significant cannabis use who presents on a 96-hour hold released from skilled nursing with very unclear sense of what the purpose of the evaluation would be and how that would inform the courts decision to release him. 1. Explore the possibility of restarting medications. 2. Get collateral information from the court and/or family for better understanding of the purpose of admission. Speak with guardian as soon as possible if guardian exists. 3. Encourage sober living treatment after discharge at the highest level of care to which he is willing to commit. 4. Continue every 15 minute checks for safety. 5. Encourage individual, group and milieu therapy. Involuntary Hold Information 2 96 Hour Hold: 96 Hour Involuntary Admission: Yes 96 Hour Hold Ending Date: 09/06/23 96 Hour Hold Ending Time: 21:51 Attestations NPU 2 Medical Necessity Statement*: Inpatient hospitalization is medically necessary and the clinically appropriate intervention at this time. We will monitor/initiate medications and make changes as indicated. He will be in the hospital for over 2 midnights. Likely length of stay 2 to 4 days. Coding Level of Care Code Acute Code for [facility] Fwd Diagnoses Hallucinations R44.3 Cannabis abuse F12.10 Paranoia F22 Psychosis, unspecified psychosis type F29
[2023-09-03 14:00] VITALS: BP 102/66; PULSE 89; RESP 14; TEMP 36.6; O2SAT 99
[2023-09-04 06:00] VITALS: BP 131/90; PULSE 110; RESP 108; O2SAT 98
[2023-09-04] MEDS: nicotine 2 mg Gum BUCCAL ×4 (06:26→21:58)
[2023-09-04] MEDS: nicotine 4 mg lozenge MUCOUS MEM (09:06)
[2023-09-04 14:00] VITALS: BP 104/66; PULSE 92; RESP 14; TEMP 36.7; O2SAT 98
--- NOTE | 2023-09-04 16:27 | P.NPUPN_ITS ---
Subjective NPU 2 Subjective: Patient presented today reporting that he is doing okay. We discussed the medication he had been on in the past and the possibility of him restarting it. He discussed in considering it. He is working with the social work team on the possibility of residential placement. Mental Status Exam 2 MSE Comments: This is a overweight white male with hospital scrubs on with limited grooming/appearing unkempt with limited eye contact. No abnormal movements except for mild psychomotor retardation. Cooperative with exam in mild distress. Speech was decreased rate and volume. Mood described confused about all this, affect somewhat guarded. Thought process linear. Thought content: Patient denied suicidal or homicidal ideation, there was occasional paranoia reported and some paranoia noted he denied auditory visual hallucinations. Attention and concentration were intact and memory was somewhat reliable but none were formally tested. He is alert and oriented x3. Insight and judgment are impaired and impulse control is impaired., Vitals/I&O/Wt Last Vital Signs Temp 98 F 09/03/23 14:00 Pulse 110 H 09/04/23 06:00 Resp 108 H 09/04/23 06:00 BP 131/90 09/04/23 06:00 Pulse Ox 98 09/04/23 06:00 O2 Del Method Room Air 09/04/23 06:00 Weight last 48 hrs Weight 86.183 kg Data NPU 09/02/23 21:45 09/02/23 21:45 A&P Assessment and plan (1) Hallucinations: (2) Cannabis abuse: (3) Paranoia: (4) Psychotic disorder: Plan This is a 38-year-old white male with psychotic symptoms and history of significant cannabis use who presents on a 96-hour hold released from skilled nursing with very unclear sense of what the purpose of the evaluation would be and how that would inform the courts decision to release him. 1. Explore the possibility of restarting medications. 2. Get collateral information from the court and/or family for better understanding of the purpose of admission. Speak with guardian as soon as possible if guardian exists. 3. Encourage sober living treatment after discharge at the highest level of care to which he is willing to commit. 4. Continue every 15 minute checks for safety. 5. Encourage individual, group and milieu therapy. Involuntary Hold Information 2 96 Hour Hold: 96 Hour Involuntary Admission: Yes 96 Hour Hold Ending Date: 09/06/23 96 Hour Hold Ending Time: 21:51 Attestations NPU 2 Medical Necessity Statement*: Inpatient hospitalization is medically necessary and the clinically appropriate intervention at this time. We will monitor/initiate medications and make changes as indicated. He will be in the hospital for over 2 midnights. Likely length of stay 1-3 days. Coding Level of Care Code Acute Code for [facility] Fwd Diagnoses Hallucinations R44.3 Cannabis abuse F12.10 Paranoia F22 Psychosis, unspecified psychosis type F29
[2023-09-04 20:36] VITALS: BP 118/80; PULSE 104; RESP 15; TEMP 36.6; O2SAT 95
[2023-09-05 06:00] VITALS: BP 122/86; PULSE 99; RESP 18; O2SAT 97
[2023-09-05] MEDS: nicotine 2 mg Gum BUCCAL ×4 (07:49→22:18)
[2023-09-05 14:00] VITALS: BP 114/74; PULSE 86; RESP 20; TEMP 36.9; O2SAT 98
--- NOTE | 2023-09-05 17:48 | P.NPUPN_ITS ---
Subjective NPU 2 Subjective: Patient presented today reporting that he is doing okay. We discussed the fact that his guardian is trying to get some kind of a transitional residential setting. We continue to discuss the possibility of restarting his medication and is not sure about that. We talked about the possibility of a medication that would be an injection which she was not excited about. Mental Status Exam 2 MSE Comments: This is a overweight white male with hospital scrubs on with limited grooming/appearing unkempt with limited eye contact. No abnormal movements except for mild psychomotor retardation. Cooperative with exam in mild distress. Speech was decreased rate and volume. Mood described confused about all this, affect somewhat guarded. Thought process linear. Thought content: Patient denied suicidal or homicidal ideation, there was occasional paranoia reported and some paranoia noted he denied auditory visual hallucinations. Attention and concentration were intact and memory was somewhat reliable but none were formally tested. He is alert and oriented x3. Insight and judgment are impaired and impulse control is impaired., Vitals/I&O/Wt Last Vital Signs Temp 98 F 09/04/23 20:36 Pulse 99 09/05/23 06:00 Resp 18 09/05/23 06:00 BP 122/86 09/05/23 06:00 Pulse Ox 97 09/05/23 06:00 O2 Del Method Room Air 09/05/23 06:00 Data NPU 09/02/23 21:45 09/02/23 21:45 A&P Assessment and plan (1) Hallucinations: (2) Cannabis abuse: (3) Paranoia: (4) Psychotic disorder: Plan This is a 38-year-old white male with psychotic symptoms and history of significant cannabis use who presents on a 96-hour hold [facility] with very unclear sense of what the purpose of the evaluation would be and how that would inform the courts decision to release him. 1. Explore the possibility of restarting medications. 2. Get collateral information from the court and/or family for better understanding of the purpose of admission. Speak with guardian as soon as possible if guardian exists. 3. Encourage sober living treatment after discharge at the highest level of care to which he is willing to commit. 4. Continue every 15 minute checks for safety. 5. Encourage individual, group and milieu therapy. Involuntary Hold Information 2 96 Hour Hold: 96 Hour Involuntary Admission: Yes 96 Hour Hold Ending Date: 09/06/23 96 Hour Hold Ending Time: 21:51 Attestations NPU 2 Medical Necessity Statement*: Inpatient hospitalization is medically necessary and the clinically appropriate intervention at this time. We will monitor/initiate medications and make changes as indicated. Likely length of stay 1-3 days. Coding Level of Care Code Acute Code for [facility]wd Diagnoses Hallucinations R44.3 Cannabis abuse F12.10 Paranoia F22 Psychosis, unspecified psychosis type F29
[2023-09-05 20:23] VITALS: BP 133/70; PULSE 118; RESP 18; TEMP 37.3; O2SAT 97
--- NOTE | 2023-09-05 20:53 | PC.NURSE ---
IN BED RESTING AROUSES TO VOICE. DENIES PAIN, SI/HI AND AVH AT THIS TIME. PT DECLINES ANY PRN MEDICATIONS. REPORTS ANXIETY 3/10 AND DEPRESSION 2/10. ALL QUESTIONS ANSWERED AND SUPPORT VOICED.
--- NOTE | 2023-09-06 06:42 | PC.NURSE ---
pt sleeping resp 18
[2023-09-06] MEDS: nicotine 2 mg Gum BUCCAL (08:22)
--- NOTE | 2023-09-06 10:14 | P.NPUPN_ITS ---
Subjective NPU 2 Subjective: Patient presented today reporting that he is doing all right. We discussed the situation and that he might benefit from some medication. He was initially resistant but then we discussed the risks, benefits and alternatives of starting Invega and he understood and agreed to proceed as is documented in this note he said he would consider it and we talked about the possibility of starting it tomorrow. 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 Mental Status Exam 2 MSE Comments: This is a overweight white male with hospital scrubs on with limited grooming/appearing unkempt with limited eye contact. No abnormal movements except for mild psychomotor retardation. Cooperative with exam in mild distress. Speech was decreased rate and volume. Mood described confused about all this, affect somewhat guarded. Thought process linear. Thought content: Patient denied suicidal or homicidal ideation, there was occasional paranoia reported and some paranoia noted he denied auditory visual hallucinations. Attention and concentration were intact and memory was somewhat reliable but none were formally tested. He is alert and oriented x3. Insight and judgment are impaired and impulse control is impaired., Vitals/I&O/Wt Last Vital Signs Temp 99.2 F 09/05/23 20:23 Pulse 118 H 09/05/23 20:23 Resp 18 09/05/23 20:23 BP 133/70 09/05/23 20:23 Pulse Ox 97 09/05/23 20:23 O2 Del Method Room Air 09/05/23 20:23 Data NPU 09/02/23 21:45 09/02/23 21:45 A&P Assessment and plan (1) Hallucinations: (2) Cannabis abuse: (3) Paranoia: (4) Psychotic disorder: Plan This is a 38-year-old white male with psychotic symptoms and history of significant cannabis use who presents on a 96-hour hold released from retirement with very unclear sense of what the purpose of the evaluation would be and how that would inform the courts decision to release him. 1. Explore the possibility of restarting medications. Consider Invega 6 mg p.o. daily. 2. Get collateral information from the court and/or family for better understanding of the purpose of admission. Speak with guardian as soon as possible if guardian exists. 3. Encourage sober living treatment after discharge at the highest level of care to which he is willing to commit. 4. Continue every 15 minute checks for safety. 5. Encourage individual, group and milieu therapy. Involuntary Hold Information 2 96 Hour Hold: 96 Hour Involuntary Admission: Yes 96 Hour Hold Ending Date: 09/06/23 96 Hour Hold Ending Time: 21:51 Attestations NPU 2 Medical Necessity Statement*: Inpatient hospitalization is medically necessary and the clinically appropriate intervention at this time. We will monitor/initiate medications and make changes as indicated. Likely length of stay 1-3 days. Coding Level of Care Code Acute Code for [facility] Fwd Diagnoses Hallucinations R44.3 Cannabis abuse F12.10 Paranoia F22 Psychosis, unspecified psychosis type F29
[2023-09-06 14:00] VITALS: BP 103/65; PULSE 128; RESP 16; TEMP 36.9; O2SAT 95
[2023-09-06 20:53] VITALS: BP 113/72; PULSE 110; RESP 18; TEMP 36.8; O2SAT 94
[2023-09-07 06:00] VITALS: BP 104/69; PULSE 84; RESP 14; TEMP 36.7; O2SAT 97
[2023-09-07] MEDS: nicotine 2 mg Gum BUCCAL ×4 (06:42→18:10)
[2023-09-07] MEDS: paliperidone ER 6 mg Tablet PO (09:23)
[2023-09-07 14:00] VITALS: BP 103/72; PULSE 92; RESP 16; TEMP 36.9; O2SAT 97
--- NOTE | 2023-09-07 16:36 | P.NPUPN_ITS ---
Subjective NPU 2 Subjective: Patient presented today reporting that he is doing okay and had no issue with his first dose of the medication he endorsed being optimistic about finding a place to go quickly. Otherwise staff reports him having some isolation and this continues to be observed. Reports that he is sleeping a lot but eating fine. Mental Status Exam 2 MSE Comments: This is a overweight white male with hospital scrubs on with limited grooming/appearing unkempt with limited eye contact. No abnormal movements except for mild psychomotor retardation. Cooperative with exam in mild distress. Speech was decreased rate and volume. Mood described as better, affect somewhat guarded but congruent. Thought process linear. Thought content: Patient denied suicidal or homicidal ideation, there was occasional paranoia reported and some paranoia noted he denied auditory visual hallucinations. Attention and concentration were intact and memory was somewhat reliable but none were formally tested. He is alert and oriented x3. Insight and judgment are impaired and impulse control is impaired., Vitals/I&O/Wt Last Vital Signs Temp 98.4 F 09/07/23 14:00 Pulse 92 09/07/23 14:00 Resp 16 09/07/23 14:00 BP 103/72 09/07/23 14:00 Pulse Ox 97 09/07/23 14:00 O2 Del Method Room Air 09/07/23 14:00 Data NPU 09/02/23 21:45 09/02/23 21:45 A&P Assessment and plan (1) Hallucinations: (2) Cannabis abuse: (3) Paranoia: (4) Psychotic disorder: Plan This is a 38-year-old white male with psychotic symptoms and history of significant cannabis use who presents on a 96-hour hold released from retirement with very unclear sense of what the purpose of the evaluation would be and how that would inform the courts decision to release him. 1. Explore the possibility of restarting medications. Start Invega 6 mg p.o. daily. 2. Get collateral information from the court and/or family for better understanding of the purpose of admission. Speak with guardian as soon as possible if guardian exists. 3. Encourage sober living treatment after discharge at the highest level of care to which he is willing to commit. 4. Continue every 15 minute checks for safety. 5. Encourage individual, group and milieu therapy. Involuntary Hold Information 2 96 Hour Hold: 96 Hour Involuntary Admission: Yes 96 Hour Hold Ending Date: 09/06/23 96 Hour Hold Ending Time: 21:51 Attestations NPU 2 Medical Necessity Statement*: Inpatient hospitalization is medically necessary and the clinically appropriate intervention at this time. We will monitor/initiate medications and make changes as indicated. Likely length of stay 1-3 days. Coding Level of Care Code Acute Code for [facility] Fwd Diagnoses Hallucinations R44.3 Cannabis abuse F12.10 Paranoia F22 Psychosis, unspecified psychosis type F29
[2023-09-07 20:44] VITALS: BP 102/68; PULSE 81; RESP 16; O2SAT 96
[2023-09-08 06:00] VITALS: BP 106/75; PULSE 88; RESP 17; O2SAT 92
[2023-09-08] MEDS: nicotine 2 mg Gum BUCCAL ×3 (08:35→15:32)
[2023-09-08] MEDS: paliperidone ER 6 mg Tablet PO (08:35)
[2023-09-08] MEDS: ibuprofen 600 mg Tablet PO (08:38)
--- NOTE | 2023-09-08 13:04 | P.NPUPN_ITS ---
Subjective NPU 2 Subjective: Patient presented today he is doing okay. He does understand that he is under guardianship now and is hopeful that we have some information about where he is going to get to live. We discussed the likely discharge at the beginning of the week but it is unclear where his guardian will be having him go. He is tolerating the medication and denied any side effects. Mental Status Exam 2 MSE Comments: This is a overweight white male with hospital scrubs on with limited grooming/appearing unkempt with limited eye contact. No abnormal movements except for mild psychomotor retardation. Cooperative with exam in mild distress. Speech was decreased rate and volume. Mood described as better, affect somewhat guarded but congruent. Thought process linear. Thought content: Patient denied suicidal or homicidal ideation, there was occasional paranoia reported and some paranoia noted he denied auditory visual hallucinations. Attention and concentration were intact and memory was somewhat reliable but none were formally tested. He is alert and oriented x3. Insight and judgment are limited and impulse control is impaired. Vitals/I&O/Wt Last Vital Signs Temp 98.4 F 09/07/23 14:00 Pulse 88 09/08/23 06:00 Resp 17 09/08/23 06:00 BP 106/75 09/08/23 06:00 Pulse Ox 92 09/08/23 06:00 O2 Del Method Room Air 09/07/23 14:00 Weight last 48 hrs Weight 93.259 kg Data NPU 09/02/23 21:45 09/02/23 21:45 A&P Assessment and plan (1) Hallucinations: (2) Cannabis abuse: (3) Paranoia: (4) Psychotic disorder: Plan This is a 38-year-old white male with psychotic symptoms and history of significant cannabis use who presents on a 96-hour hold released from nursing home with very unclear sense of what the purpose of the evaluation would be and how that would inform the courts decision to release him. 1. Explore the possibility of restarting medications. Started Invega 6 mg p.o. daily. 2. Get collateral information from the court and/or family for better understanding of the purpose of admission. Speak with guardian as soon as possible if guardian exists. 3. Encourage sober living treatment after discharge at the highest level of care to which he is willing to commit. 4. Continue every 15 minute checks for safety. 5. Encourage individual, group and milieu therapy. Involuntary Hold Information 2 96 Hour Hold: 96 Hour Involuntary Admission: Yes 96 Hour Hold Ending Date: 09/06/23 96 Hour Hold Ending Time: 21:51 Attestations NPU 2 Medical Necessity Statement*: Inpatient hospitalization is medically necessary and the clinically appropriate intervention at this time. We will monitor/initiate medications and make changes as indicated. Likely length of stay 1-3 days. Coding Level of Care Code Acute Code for [facility] Fwd Diagnoses Hallucinations R44.3 Cannabis abuse F12.10 Paranoia F22 Psychosis, unspecified psychosis type F29
[2023-09-08 14:00] VITALS: BP 105/71; PULSE 81; RESP 16; TEMP 36.8; O2SAT 97
[2023-09-08 19:42] VITALS: BP 108/71; PULSE 87; RESP 18; O2SAT 95
[2023-09-09 06:00] VITALS: BP 119/81; PULSE 90; RESP 18; O2SAT 97
[2023-09-09] MEDS: nicotine 2 mg Gum BUCCAL ×3 (06:13→18:12)
--- NOTE | 2023-09-09 07:39 | P.NPUPN_ITS ---
Subjective NPU 2 Subjective: Patient presented today reporting that he is doing fine. He reports that he is having no side effects or issues with the medication. And reports that he has been in contact with his family and his family is talking about being open to him coming home. We agree we will have the social work team revisit this conversation with his parents. We discussed the possibility of the long-acting injectable and that we would speak with his guardian about that tomorrow as part of this overall conversation about placement and follow-up. Mental Status Exam 2 MSE Comments: This is a overweight white male with hospital scrubs on with limited grooming/appearing unkempt with limited eye contact. No abnormal movements except for mild psychomotor retardation. Cooperative with exam in mild distress. Speech was decreased rate and volume. Mood described as better, affect somewhat guarded but congruent. Thought process linear. Thought content: Patient denied suicidal or homicidal ideation, there was occasional paranoia reported and some paranoia noted he denied auditory visual hallucinations. Attention and concentration were intact and memory was somewhat reliable but none were formally tested. He is alert and oriented x3. Insight and judgment are limited and impulse control is impaired. Vitals/I&O/Wt Last Vital Signs Temp 98.3 F 09/08/23 14:00 Pulse 90 09/09/23 06:00 Resp 18 09/09/23 06:00 BP 119/81 09/09/23 06:00 Pulse Ox 97 09/09/23 06:00 O2 Del Method Room Air 09/08/23 19:42 Weight last 48 hrs Weight 93.259 kg Data NPU 09/02/23 21:45 09/02/23 21:45 A&P Assessment and plan (1) Hallucinations: (2) Cannabis abuse: (3) Paranoia: (4) Psychotic disorder: Plan This is a 38-year-old white male with psychotic symptoms and history of significant cannabis use who presents on a 96-hour hold released from longterm with very unclear sense of what the purpose of the evaluation would be and how that would inform the courts decision to release him. 1. Explore the possibility of restarting medications. Started Invega 6 mg p.o. daily. 2. Get collateral information from the court and/or family for better understanding of the purpose of admission. Speak with guardian as soon as possible if guardian exists. 3. Encourage sober living treatment after discharge at the highest level of care to which he is willing to commit. 4. Continue every 15 minute checks for safety. 5. Encourage individual, group and milieu therapy. Involuntary Hold Information 2 96 Hour Hold: 96 Hour Involuntary Admission: Yes 96 Hour Hold Ending Date: 09/06/23 96 Hour Hold Ending Time: 21:51 Attestations NPU 2 Medical Necessity Statement*: Inpatient hospitalization is medically necessary and the clinically appropriate intervention at this time. We will monitor/initiate medications and make changes as indicated. Likely length of stay 1-3 days. Coding Level of Care Code Acute Code for g Fwd Diagnoses Hallucinations R44.3 Cannabis abuse F12.10 Paranoia F22 Psychosis, unspecified psychosis type F29
[2023-09-09] MEDS: paliperidone ER 6 mg Tablet PO (07:59)
[2023-09-09] MEDS: nicotine 4 mg lozenge MUCOUS MEM (08:36)
[2023-09-09 14:00] VITALS: BP 108/74; PULSE 88; RESP 16; TEMP 36.8; O2SAT 97
[2023-09-09 20:24] VITALS: BP 101/67; PULSE 88; RESP 18; TEMP 36.3; O2SAT 98
[2023-09-10 06:00] VITALS: BP 146/84; PULSE 97; RESP 18; O2SAT 98
[2023-09-10] MEDS: nicotine 2 mg Gum BUCCAL ×4 (06:40→13:08)
[2023-09-10] MEDS: paliperidone ER 6 mg Tablet PO (08:17)
[2023-09-10 14:00] VITALS: BP 122/80; PULSE 107; RESP 14; TEMP 36.6; O2SAT 100
[2023-09-10] MEDS: nicotine 4 mg lozenge MUCOUS MEM (15:32)
--- NOTE | 2023-09-10 18:10 | P.NPUPN_ITS ---
Subjective NPU 2 Subjective: Patient presented today reporting that he is feeling okay. We continued his discussion about being able to return home. He is working with the social work team to determine whether this is accurate and we are waiting response from the guardian. He denies any side effects to the medication and reports that he is sleeping fine and eating better. We discussed the possibility of discharge if going home is in fact back on the table but we discussed that we had not heard back from parents. Mental Status Exam 2 MSE Comments: This is a overweight white male with hospital scrubs on with limited grooming/appearing unkempt with limited eye contact. No abnormal movements except for mild psychomotor retardation. Cooperative with exam in mild distress. Speech was decreased rate and volume. Mood described as better, affect somewhat guarded but congruent. Thought process linear. Thought content: Patient denied suicidal or homicidal ideation, there was occasional paranoia reported and some paranoia noted he denied auditory visual hallucinations. Attention and concentration were intact and memory was somewhat reliable but none were formally tested. He is alert and oriented x3. Insight and judgment are limited and impulse control is impaired. Vitals/I&O/Wt Last Vital Signs Temp 97.4 F L 09/10/23 19:58 Pulse 91 09/10/23 19:58 Resp 18 09/10/23 19:58 BP 108/63 09/10/23 19:58 Pulse Ox 97 09/10/23 19:58 O2 Del Method Room Air 09/10/23 19:58 Data NPU 09/02/23 21:45 09/02/23 21:45 A&P Assessment and plan (1) Hallucinations: (2) Cannabis abuse: (3) Paranoia: (4) Psychotic disorder: Plan This is a 38-year-old white male with psychotic symptoms and history of significant cannabis use who presents on a 96-hour hold released from retirement with very unclear sense of what the purpose of the evaluation would be and how that would inform the courts decision to release him. 1. Explore the possibility of restarting medications. Started Invega 6 mg p.o. daily. 2. Get collateral information from the court and/or family for better understanding of the purpose of admission. Speak with guardian. 3. Encourage sober living treatment after discharge at the highest level of care to which he is willing to commit. 4. Continue every 15 minute checks for safety. 5. Encourage individual, group and milieu therapy. Involuntary Hold Information 2 96 Hour Hold: 96 Hour Involuntary Admission: Yes 96 Hour Hold Ending Date: 09/06/23 96 Hour Hold Ending Time: 21:51 Attestations NPU 2 Medical Necessity Statement*: Inpatient hospitalization is medically necessary and the clinically appropriate intervention at this time. We will monitor/initiate medications and make changes as indicated. Likely length of stay 1-3 days. Coding Level of Care Code Acute Code for [facility] Fwd Diagnoses Hallucinations R44.3 Cannabis abuse F12.10 Paranoia F22 Psychosis, unspecified psychosis type F29
[2023-09-10 19:58] VITALS: BP 108/63; PULSE 91; RESP 18; TEMP 36.3; O2SAT 97
[2023-09-11 06:00] VITALS: BP 115/71; PULSE 107; RESP 18; O2SAT 98
--- NOTE | 2023-09-11 07:14 | P.NPUPN_ITS ---
Subjective NPU 2 Subjective: Patient presented today reporting that he is doing all right. He continues to have some thought that his parents might be okay with him returning home and we discussed that we had a lengthy discussion with mom and she is having challenges excepting his situation. She reports that he cannot come home because of previous issues of psychosis. We discussed with her that his likely diagnosis of schizophrenia and that the cannabis is probably not a good idea given his condition but it is not our belief that this is substance-induced psychosis if there is no other drug use like methamphetamine. This is his second presentation here we discussed where psychosis was present but we discussed the absence of aggressiveness or any concerns that would impact his safety outside of here. We discussed that he would be a good candidate for some kind of placement except for the fact that he has no economic support for some kind of placement. He and I discussed the specifics of the conversation with his mother. There was also some concern about diagnosis and obtaining that and we discussed how a person request the records. Mental Status Exam 2 MSE Comments: This is a overweight white male with hospital scrubs on with limited grooming/appearing unkempt with limited eye contact. No abnormal movements except for mild psychomotor retardation. Cooperative with exam in mild distress. Speech was decreased rate and volume. Mood described as better, affect somewhat guarded but congruent. Thought process linear. Thought content: Patient denied suicidal or homicidal ideation, there was occasional paranoia reported and some paranoia noted he denied auditory visual hallucinations. Attention and concentration were intact and memory was somewhat reliable but none were formally tested. He is alert and oriented x3. Insight and judgment are limited and impulse control is impaired. Vitals/I&O/Wt Last Vital Signs Temp 97.4 F L 09/10/23 19:58 Pulse 107 H 09/11/23 06:00 Resp 18 09/11/23 06:00 BP 115/71 09/11/23 06:00 Pulse Ox 98 09/11/23 06:00 O2 Del Method Room Air 09/11/23 06:00 Data NPU 09/02/23 21:45 09/02/23 21:45 A&P Assessment and plan (1) Hallucinations: (2) Cannabis abuse: (3) Paranoia: (4) Psychotic disorder: Plan This is a 38-year-old white male with psychotic symptoms and history of significant cannabis use who presents on a 96-hour hold released from care home with very unclear sense of what the purpose of the evaluation would be and how that would inform the courts decision to release him. 1. Explore the possibility of restarting medications. Started Invega 6 mg p.o. daily. Considering long-acting injectable when available. 2. Get collateral information from the court and/or family for better understanding of the purpose of admission. Speak with guardian. 3. Encourage sober living treatment after discharge at the highest level of care to which he is willing to commit. 4. Continue every 15 minute checks for safety. 5. Encourage individual, group and milieu therapy. Involuntary Hold Information 2 96 Hour Hold: 96 Hour Involuntary Admission: Yes 96 Hour Hold Ending Date: 09/06/23 96 Hour Hold Ending Time: 21:51 Attestations NPU 2 Medical Necessity Statement*: Inpatient hospitalization is medically necessary and the clinically appropriate intervention at this time. We will monitor/initiate medications and make changes as indicated. Likely length of stay 1-3 days. Coding Level of Care Code Acute Code for [facility] Fwd Diagnoses Hallucinations R44.3 Cannabis abuse F12.10 Paranoia F22 Psychosis, unspecified psychosis type F29
[2023-09-11] MEDS: paliperidone ER 6 mg Tablet PO (07:44)
[2023-09-11] MEDS: nicotine 2 mg Gum BUCCAL ×3 (07:44→13:08)
[2023-09-11 14:00] VITALS: BP 136/83; PULSE 110; RESP 14; TEMP 36.8; O2SAT 99
[2023-09-11] MEDS: nicotine 4 mg lozenge MUCOUS MEM ×2 (14:38→18:08)
[2023-09-11 19:51] VITALS: BP 120/79; PULSE 94; RESP 18; TEMP 36.4; O2SAT 98
[2023-09-12 06:00] VITALS: BP 122/87; PULSE 95; RESP 18; TEMP 36.5; O2SAT 97
[2023-09-12] MEDS: nicotine 4 mg lozenge MUCOUS MEM ×2 (07:48→14:14)
[2023-09-12] MEDS: paliperidone ER 6 mg Tablet PO (08:00)
[2023-09-12] MEDS: nicotine 2 mg Gum BUCCAL (10:36)
[2023-09-12 13:28] VITALS: BP 122/87; PULSE 95; RESP 18; TEMP 36.5; O2SAT 97
--- NOTE | 2023-09-12 13:34 | W.PM.NPUDCS ---
Diagnoses at Discharge Discharge Diagnosis (1) Hallucinations: Status: Acute (2) Cannabis abuse: Status: Acute (3) Paranoia: Status: Acute (4) Psychotic disorder: Status: Acute (5) Schizophrenia: Status: Acute Reason for Visit Reason for Visit: 96 hr hold Brief History: History of Present Illness Ambrosio Mirza is a 38 year old male who presented to the emergency department with the following report: Chief Complaint: Psychiatric Symptoms Stated Complaint: psychiatric eval Time Seen by Provider: 09/02/23 20:23 Source: patient and police Mode of arrival: other Limitations: no limitations History of Present Illness: 38-year-old male who is currently incarcerated at [facility] has been there for 5 months. Speaking to the snf guards with thinking he was sent here for a psych eval that was court ordered. They are concerned he may be bipolar as he is made statements that he believes he is smarter than everyone else and that he does not believe in God. Patient denies SI or HI patient here has been calm and cooperative. Denies any worsening improving factors. Associated symptoms: Deny delusions or depression Patient presented to the emergency department known from a past admission with some confusion about exactly what was needed. He told a fairly convoluted story about doing fine after discharge but not continuing his medication. He reports that his mother called the police on him secondary to some conflict they were having regarding his use of cannabis and his desire to grow cannabis on their property legally with the new change in laws. He reports that turned into some conflict that led to the police being called and then going in his room and finding some knife or some other object. He reports that they arrested him and then charged home with some kind of weapons charge of some sort. He reports that happened back in March and that he has been incarcerated ever since. He reports that he could have gotten out in April on a name fine but is sister had concerns about signing him out under her name. Fast forward to now he reports that he had some kind of hearing today where today talked about him getting guardianship and told him he was coming here on a 96-hour hold for 2 days or maybe a couple weeks for guardianship to manifest. He reports that he was told that if he did not get admitted that he would be in the assisted at least till October. He said they plan on dropping the charges but the story was very confusing. We reviewed his previous hospitalization in 2020 and some of the concerns at that time. We discussed our continued belief at that time that his psychotic disorder could be representation of an organic psychotic disorder but could also be a consequence of cannabis use in some situations. 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 He reports that they thought he was using too much money at the dispensary and his mother was afraid that if he legally got the license to grow cannabis on their property that the difference between the state and federal laws could put their property at risk for being confiscated for marijuana growing. He denies any history of aggression and denies that there was any kind of weapon but reports he is trying to do what he has been asked to do by the court but feels if he is not admitted to the cost of another 3 months of his life we discussed the difficulty in knowing what is delusional and what is not in situations where the delusions are not of a bizarre nature so was unclear about the concerns his mom brought to the court this supposedly the basis of his 96-hour hold. It was also unclear whether this was a furlough or whether he was going to be actually released. We discussed that the emergency room doctor would work with the court and the assisted and the officer to determine the situation to make a final decision on admission. An excerpt of his 2020 admission is included below for historical context and the fact that he denies significant changes since then. Per his 12/24/2020 [facility] inpatient psychiatric discharge summary: Discharge Diagnosis (1) Psychotic disorder: Status: Acute (2) Cannabis abuse: Status: Acute Reason for Visit Reason for Visit: PSYCH EVAL Brief History: History of Present Illness Amrbosio Mirza is a 35 year old male unclear, unknown past psychiatric history presented to the emergency department by police on 96-hour hold secondary to growing concerns about impulse control, irritability, anger, paranoid delusions and concerns about safety to self and others. At the time of his emergency department evaluation it was noted that he had stated that he was having hallucinations and was having paranoid delusions about his sisters . Patient was also noted to have a white count of 30,000 the time of initial evaluation hospitalist was consulted but at the time of reevaluation patient's white count had dropped down to 11,000 and patient denied any constitutional symptoms of fever or chills, no shortness of breath, no urinary complaints. CT of head, abdomen and pelvis were all unremarkable patient did not demonstrate any physical agitation throughout his ER stay. Patient calmly sitting in the day room talking to other patients, denies any mood symptoms, denies any depressed symptoms, denies any irritability or anger, denies any suicidal or homicidal ideation. Patient denies any past episodes of sustained low mood state, decreased energy or interest in his usual activities or any sleep or appetite disruption secondary to mood symptoms. He denies any history of suicide attempts or self-harm behavior. Patient denies any past or recent episodes of enrike or hypomania. Patient currently denying any psychotic symptoms although he does report some paranoia which he relates to more now as suspicions about his sister's . Patient largely denied any psychiatric review of systems questions. COLLATERAL: Patient's mother, Anum, phone: [phone], reports that the patient has had intermittent episodes of anger, irritability, impulsive outbursts and states that he has had past instances of such behavior while using synthetic drugs and states that one of her daughters had also told her that he had recently been using wax around the time. Of these episodes of extreme rage in which the patient's family has felt threatened that he may possibly hurt himself or others. She denies that the patient has had any remarkable past psychiatric history but states that his sister has previously been hospitalized and treated for psychiatric reasons but denies any family history of suicide attempt or self-harm behavior. Hospital Course Hermes presented to the emergency department reporting being here but seeming to have paranoia and possible hallucinations with collateral from family endorsing those issues being prominent in the complex that occurred in the home. He was admitted to the neuropsychiatric unit for definitive treatment of those issues. On the unit he slowly acclimated to the individual, group and milieu therapies. He was started on Zyprexa 2.5 mg p.o. twice daily with positive response. He started having more rational conversations and was able to work with his significant other to begin exploring alternative living arrangement if that was necessary. He was able to contract for safety prior to discharge. During the hospitalization, patient had routine laboratory studies which were within normal limits except for few outliers. Additionally there was a general medical evaluation which was also within normal limits and revealed no new acute processes. Discharge Summary: At the time of discharge, lethality was denied and psychosis was resolving. Mood and anxiety were well managed. Patient endorsed a plan to avoid all drugs of abuse and follow-up with the aftercare recommendations of the treatment team. Patient was evaluated and deemed to be absent credible lethality, and had achieved the maximum benefit from an inpatient hospitalization, so was discharged. Hospital Course Hospital Course He slowly acclimated to the individual, group and milieu therapies. He presented to the hospital having been in snf since March. There was an emergency guardianship process in place which led to him having guardianship after presenting on a 96-hour hold. He was initially resistant to medication. Eventually he agreed to start Invega 6 mg p.o. daily which she tolerated quite well. The long-acting injectable Invega Sustenna 234 mg IM loading dose to deltoid was given prior to discharge, next injection 156 mg IM loading dose to deltoid during 09/19/2023. He worked with the social work team to figure out outpatient care as well as working with his family to create a place for him to be discharged to. He had significant improvement and was able to contract for safety outside the hospital prior to discharge. During the hospitalization, patient had routine laboratory studies which were within normal limits except for few outliers. Additionally there was a general medical evaluation which was also within normal limits and revealed no new acute processes. At the time of discharge, he denied lethality and his psychosis was resolving. Mood and anxiety were well managed. Patient endorsed a plan to avoid all drugs of abuse and follow-up with the aftercare recommendations of the treatment team. Patient was evaluated and deemed to be absent credible lethality, and had achieved the maximum benefit from an inpatient hospitalization, so was discharged. Involuntary Hold Information 96 Hour Hold: 96 Hour Involuntary Admission: Yes 96 Hour Hold Ending Date: 09/06/23 96 Hour Hold Ending Time: 21:51 Mental Status Exam MSE Comments: This is a overweight white male with hospital scrubs on with grooming improving and improving eye contact. No abnormal movements except for mild psychomotor retardation. Cooperative with exam in mild distress. Speech was more normal rate and volume. Mood described as better, affect less guarded but congruent. Thought process linear. Thought content: Patient denied suicidal or homicidal ideation, there was occasional paranoia reported and less paranoia noted, he denied auditory or visual hallucinations. Attention and concentration were intact and memory was somewhat reliable but none were formally tested. He is alert and oriented x3. Insight and judgment are limited and impulse control is impaired. Discharge Data Studies Completed and Pending: Laboratory Results WBC 9.92 10^3/uL (3.2 9-11.43) 09/02/23 21:45 RBC 5.32 10^6/uL (3.8 5-5.65) 09/02/23 21:45 Hgb 15.80 g/dL (11.27 -16.99) 09/02/23 21:45 Hct 47.3 % (37-53) 09/02/23 21:45 MCV 88.9 fl (82-101) 09/02/23 21:45 MCH 29.7 pg (27-33) 09/02/23 21:45 MCHC 33.4 g/dL (30-55) 09/02/23 21:45 RDW 11.9 % (12.1-15.1 ) L 09/02/23 21:45 Plt Count 269 10^3/cmm (157 -399) 09/02/23 21:45 MPV 9.5 fL (7.4-10.4) 09/02/23 21:45 Neut % (Auto) 49.6 % 09/02/23 21:45 Lymph % (Auto) 34.6 % 09/02/23 21:45 Craig % (Auto) 12.5 % 09/02/23 21:45 Eos % (Auto) 1.8 % 09/02/23 21:45 Baso % (Auto) 1.2 % 09/02/23 21:45 Neut # (Auto) 4.92 10^3/uL (1.8 -7.7) 09/02/23 21:45 Lymph # (Auto) 3.4 10^3/uL (0.8- 4.8) 09/02/23 21:45 Craig # (Auto) 1.2 10^3/uL (0.2- 0.9) H 09/02/23 21:45 Eos # (Auto) 0.2 10^3/uL (0.0- 0.8) 09/02/23 21:45 Baso # (Auto) 0.1 10^3/uL (0.0- 0.1) 09/02/23 21:45 Nucleated RBC % (a uto) 0 % 09/02/23 21:45 Nucleated RBCs # 0.0 /100WBC 09/02/23 21:45 Sodium 135 mmol/L (136-1 45) L 09/02/23 21:45 Potassium 4.4 mmol/L (3.5-5 .1) 09/02/23 21:45 Chloride 101 mmol/L (98-10 7) 09/02/23 21:45 Carbon Dioxide 24 mmol/L (22-29) 09/02/23 21:45 Anion Gap 14.4 (5-19) 09/02/23 21:45 BUN 8 mg/dL (6-20) 09/02/23 21:45 Creatinine 0.8 mg/dL (0.7-1. 2) 09/02/23 21:45 GFR Calculation 108.8 mL/min (90- 130) 09/02/23 21:45 Glucose 95 mg/dL (65-115) 09/02/23 21:45 Calculated Osmolal ity 278 mOsm/kg (285- 295) L 09/02/23 21:45 Calcium 9.1 mg/dL (8.5-10 .5) 09/02/23 21:45 Total Bilirubin 0.7 mg/dL (0.15-1 .2) 09/02/23 21:45 AST 19 U/L (0-40) 09/02/23 21:45 ALT 22 U/L (0-41) 09/02/23 21:45 Alkaline Phosphata se 118 U/L (40-130) 09/02/23 21:45 Total Protein 7.4 g/dL (6.6-8.7 ) 09/02/23 21:45 Albumin 4.1 g/dL (3.5-5.2 ) 09/02/23 21:45 Globulin 3.3 g/dL (1.3-4.6 ) 09/02/23 21:45 Salicylates < 0.3 mg/dL (3-10 ) L 09/02/23 21:45 Urine Opiates Scre en Negative ng/mL (N egative) 09/03/23 04:05 Acetaminophen < 5.0 ug/mL (10-3 0) L 09/02/23 21:45 Ur Barbiturates Sc reen Negative ng/mL (N egative) 09/03/23 04:05 Ur Phencyclidine S crn Negative ng/mL (N egative) 09/03/23 04:05 Ur Amphetamines Sc reen Negative ng/mL (N egative) 09/03/23 04:05 U Benzodiazepines Scrn Negative ng/mL (N egative) 09/03/23 04:05 Urine Cocaine Scre en Negative ng/mL (N egative) 09/03/23 04:05 U Marijuana (THC) Screen Positive ng/mL (N egative) H 09/03/23 04:05 Ethyl Alcohol < 10 mg/dL (0-10) 09/02/23 21:45 Vitals: Last Vital Signs Temp 97.7 F 09/12/23 13:28 Pulse 95 09/12/23 13:28 Resp 18 09/12/23 13:28 BP 122/87 09/12/23 13:28 Pulse Ox 97 09/12/23 13:28 O2 Del Method Room Air 09/12/23 06:00 Discharge Plan Discharge Patient Disposition: Home Condition: Stable Prescriptions: New Invega Sustenna 234 mg/1.5 mL syringe 234 mg IM Q30D Qty: 1.5 0RF Rx Instructions: Give today IM to deltoid loading dose Invega Sustenna 156 mg/mL syringe 156 mg IM Q30D Qty: 1 2RF Rx Instructions: Next injection 09/19/2023 to deltoid second loading dose. Then IM 10/17/2023 then as prescribed No Action No Known Home Medications Discharge Orders: Discharge Order (Routine); Ordered 09/12/23 Ordered By: Jackson Guerra Referrals: [facility] [Other] (Call Katelyn at phone number provided with extension [phone] with any insurance questions or needs.) Stephanie Enriquez, CLIENT SERVICES ASSISTANT [Therapist] - 09/20/23 1:00 pm (Initial assessment for services) Discharge Diet: Regular Discharge Activity: Resume usual activity Patient Instructions: Paliperidone (By injection) (Invega Sustenna, Invega Trinza, Invega..., Cannabis Use Disorder (DC), Opioid Safety Discharge Attestations NPU Time Spent in Discharge Care*: less than 30 min Specific Discharge Activities: Specific discharge activities: educating patient, discussing with registered nurse hh case manager/social workers/dc planners, documenting/other paperwork and evaluating patient/reviewing data Coding Level of Care Code Acute Code for Chg Fwd Diagnoses Hallucinations R44.3 Cannabis abuse F12.10 Paranoia F22 Psychosis, unspecified psychosis type F29 Schizophrenia F20.9
[2023-09-12 14:00] VITALS: BP 116/70; PULSE 103; RESP 15; TEMP 36.6; O2SAT 95
--- NOTE | 2023-09-12 14:17 | PC.NURSE ---
Administered Invega 234mg IM into left deltoid at 1410. Patient tolerated well.
== END 2023-09-12 16:05 | disposition home or self-care (01) | DRG 885 ==
LOC: ER 22:09 → NP 22:12
PROVIDERS: Admitting Provider Psychiatry & Neurology Psychiatry; Emergency Provider Emergency Medicine; Visit Provider Psychiatry & Neurology Psychiatry
DX: F20.9 Schizophrenia, unspecified (principal); F12.10 Cannabis abuse, uncomplicated
CPT/HCPCS: 36415; 80053; 80306; 80307; 85025; 97150; 97165; 99285